=== PATIENT | female | born 1980 | race Caucasian/White ===

== ENCOUNTER 2016-05-25 20:09 | Observation (INO) | payer OTHER ==
[2016-05-25] MEDS ORDERED: SODIUM CHLORIDE 0.9% 1,000 ML IV STA (20:23)
[2016-05-25] MEDS ORDERED: HYDROmorphone 2 MG/ML 1 ML SYRINGE IVP STA (20:24)
[2016-05-25] MEDS ORDERED: KETOROLAC 30 MG/ML 1 ML VIAL IVP STA (20:28)
--- NOTE | 2016-05-25 20:38 | ED ---
General Adult HPI - General Source: patient, RN notes reviewed, old records reviewed Mode of arrival: ambulatory Limitations: no limitations <Toribio Turner - Last Filed: 05/25/16 20:37> <Bianka Lundberg - Last Filed: 05/25/16 22:35> - General Chief complaint: Chest Pain Stated complaint: chest pain Time Seen by Provider: 05/25/16 20:19 - History of Present Illness Initial comments: This is a 35-year-old female here for evaluation. This patient presents reversion chest pain. Patient does sore from chest pain and chronic pain. Is feeling she can take decreased deep inspirations. Radiates to back of her shoulders. She does suffer from fibromyalgia, her current home medication is not helping (Toribio Turner) - Related Data Home Medications Medication Instructions Recorded Confirmed Naproxen [Naprosyn] 500 mg PO TID PRN 12/08/14 05/25/16 Albuterol Inhaler [Ventolin Hfa 1 - 2 puff INHALATION RT-Q6H PRN 05/25/16 Inhaler] Allergies Allergy/AdvReac Type Severity Reaction Status Date / Time No Known Allergies Allergy Verified 05/25/16 20:38 Review of Systems ROS Other: All systems not noted in ROS Statement are negative. <Toribio Turner - Last Filed: 05/25/16 20:37> ROS Other: All systems not noted in ROS Statement are negative. <Bianka Lundberg - Last Filed: 05/25/16 22:35> ROS Statement: Those systems with pertinent positive or pertinent negative responses have been documented in the HPI. Past Medical History Past Medical History: Fibromyalgia Additional Past Medical History / Comment(s): chronic pain, herniated discs in lower back and neck History of Any Multi-Drug Resistant Organisms: None Reported Past Surgical History: Section, Cholecystectomy Past Psychological History: Anxiety, Depression, PTSD Smoking Status: Current every day smoker Past Alcohol Use History: None Reported Past Drug Use History: Marijuana <Toribio Turner - Last Filed: 05/25/16 20:37> General Exam Limitations: no limitations General appearance: alert, in no apparent distress, anxious Head exam: Present: atraumatic, normocephalic, normal inspection Eye exam: Present: normal appearance, PERRL, EOMI. Absent: scleral icterus, conjunctival injection, periorbital swelling ENT exam: Present: normal exam, mucous membranes moist Neck exam: Present: normal inspection. Absent: tenderness, meningismus, lymphadenopathy Respiratory exam: Present: normal lung sounds bilaterally. Absent: respiratory distress, wheezes, rales, rhonchi, stridor Cardiovascular Exam: Present: regular rate, normal rhythm, normal heart sounds. Absent: systolic murmur, diastolic murmur, rubs, gallop, clicks GI/Abdominal exam: Present: soft, normal bowel sounds. Absent: distended, tenderness, guarding, rebound, rigid Extremities exam: Present: normal inspection, full ROM, normal capillary refill. Absent: tenderness, pedal edema, joint swelling, calf tenderness Back exam: Present: normal inspection Neurological exam: Present: alert, oriented X3, CN II-XII intact Psychiatric exam: Present: normal affect, normal mood Skin exam: Present: warm, dry, intact, normal color. Absent: rash <Toribio Turner - Last Filed: 05/25/16 20:37> Course <Toribio Turner - Last Filed: 05/25/16 20:37> <Bianka Lundberg - Last Filed: 05/25/16 22:35> Vital Signs 05/25/16 05/25/16 20:12 21:28 Temperature 98.6 F 97.7 F Pulse Rate 80 64 Respiratory 18 16 Rate Blood Pressure 133/85 117/69 O2 Sat by Pulse 100 99 Oximetry Patient was reassessed at 2230, she still having a chest pain as a 6/10 it's in the midsternal and she would prefer to stay in for serial cardiac markers were likely admit her under Dr. Marquis service cardiology be consulted she be heparinized (Bianka Lundberg) - Reevaluation(s) Reevaluation #1: 05/25/16 20:38 At this time patient's pain is improved (Toribio Turner) Medical Decision Making - Lab Data Result diagrams: 05/25/16 20:30 05/25/16 20:30 <Bianka Lundberg - Last Filed: 05/25/16 22:35> - Lab Data Lab Results 05/25/16 05/25/16 05/25/16 Range/Units 20:30 20:30 20:30 WBC 8.7 (3.8-10.6) k/uL RBC 4.78 (3.80-5.40) m/uL Hgb 13.3 (11.4-16.0) gm/dL Hct 39.6 (34.0-46.0) % MCV 82.9 (80.0-100.0) fL MCH 27.9 (25.0-35.0) pg MCHC 33.7 (31.0-37.0) g/dL RDW 13.0 (11.5-15.5) % Plt Count 218 (150-450) k/uL Neutrophils % 69 % Lymphocytes % 22 % Monocytes % 5 % Eosinophils % 2 % Basophils % 1 % Neutrophils # 6.0 (1.3-7.7) k/uL Lymphocytes # 1.9 (1.0-4.8) k/uL Monocytes # 0.4 (0-1.0) k/uL Eosinophils # 0.2 (0-0.7) k/uL Basophils # 0.0 (0-0.2) k/uL PT (9.0-12.0) sec INR (<1.1) APTT (22.0-30.0) sec D-Dimer (<0.60) mg/L FEU Sodium 142 (137-145) mmol/L Potassium 3.9 (3.5-5.1) mmol/L Chloride 106 (98-107) mmol/L Carbon Dioxide 24 (22-30) mmol/L Anion Gap 12 mmol/L BUN 10 (7-17) mg/dL Creatinine 0.70 (0.52-1.04) mg/dL Est GFR (MDRD) Af Amer >60 (>60 ml/min/1.73 sqM) Est GFR (MDRD) Non-Af >60 (>60 ml/min/1.73 sqM) Glucose 99 (74-99) mg/dL Calcium 9.3 (8.4-10.2) mg/dL Magnesium 1.7 (1.6-2.3) mg/dL Total Bilirubin 0.3 (0.2-1.3) mg/dL AST 16 (14-36) U/L ALT 38 (9-52) U/L Alkaline Phosphatase 56 (38-126) U/L Total Creatine Kinase 64 (30-135) U/L CK-MB (CK-2) 0.4 (0.0-2.4) ng/mL CK-MB (CK-2) Rel Index 0.6 Troponin I <0.012 (0.000-0.034) ng/mL NT-Pro-B Natriuret Pep pg/mL Total Protein 6.9 (6.3-8.2) g/dL Albumin 4.1 (3.5-5.0) g/dL Lipase 101 (23-300) U/L 05/25/16 05/25/16 Range/Units 20:30 20:30 WBC (3.8-10.6) k/uL RBC (3.80-5.40) m/uL Hgb (11.4-16.0) gm/dL Hct (34.0-46.0) % MCV (80.0-100.0) fL MCH (25.0-35.0) pg MCHC (31.0-37.0) g/dL RDW (11.5-15.5) % Plt Count (150-450) k/uL Neutrophils % % Lymphocytes % % Monocytes % % Eosinophils % % Basophils % % Neutrophils # (1.3-7.7) k/uL Lymphocytes # (1.0-4.8) k/uL Monocytes # (0-1.0) k/uL Eosinophils # (0-0.7) k/uL Basophils # (0-0.2) k/uL PT 10.1 (9.0-12.0) sec INR 1.0 (<1.1) APTT 25.0 (22.0-30.0) sec D-Dimer 0.31 (<0.60) mg/L FEU Sodium (137-145) mmol/L Potassium (3.5-5.1) mmol/L Chloride (98-107) mmol/L Carbon Dioxide (22-30) mmol/L Anion Gap mmol/L BUN (7-17) mg/dL Creatinine (0.52-1.04) mg/dL Est GFR (MDRD) Af Amer (>60 ml/min/1.73 sqM) Est GFR (MDRD) Non-Af (>60 ml/min/1.73 sqM) Glucose (74-99) mg/dL Calcium (8.4-10.2) mg/dL Magnesium (1.6-2.3) mg/dL Total Bilirubin (0.2-1.3) mg/dL AST (14-36) U/L ALT (9-52) U/L Alkaline Phosphatase (38-126) U/L Total Creatine Kinase (30-135) U/L CK-MB (CK-2) (0.0-2.4) ng/mL CK-MB (CK-2) Rel Index Troponin I (0.000-0.034) ng/mL NT-Pro-B Natriuret Pep 64 pg/mL Total Protein (6.3-8.2) g/dL Albumin (3.5-5.0) g/dL Lipase (23-300) U/L Critical Care Time <Toribio Turner - Last Filed: 05/25/16 20:37> Total Critical Care Time: 35 <Bianka Lundberg - Last Filed: 05/25/16 22:35> Critical Care Time: Though her blood work looks fine chest x-ray, CBC, comprehensive metabolic panel , d-dimer, troponin considering the chest pain continued to persist at 6/10 at this point she'll be heparinized and a cardiology be consulted there are some risk factors like she has a family history of heart disease. (Bianka Lundberg) Disposition <Toribio Turner - Last Filed: 05/25/16 20:37> <Bianka Lundberg - Last Filed: 05/25/16 22:35> Clinical Impression: Chest pain Disposition: ADMITTED IP TO THIS [facility] Condition: Fair
[2016-05-25 20:45] LABS: Basophils % (A) 1 %; CH 29.1; CHCM 35.3; Eosinophils # (A) 0.2 k/uL (0-0.7); Eosinophils % (A) 2 %; HCT 39.6 % (34.0-46.0); HDW 2.88; HGB 13.3 gm/dL (11.4-16.0); Luc # (Auto) 0.11; Luc % (Auto) 1; Lymphocytes # (A) 1.9 k/uL (1.0-4.8); Lymphocytes % (A) 22 %; MCH 27.9 pg (25.0-35.0); MCHC 33.7 g/dL (31.0-37.0); MCV 82.9 fL (80.0-100.0); Mean Platelet Volume 8.2; Monocytes # (A) 0.4 k/uL (0-1.0); Monocytes % (A) 5 %; Neutrophils % (A) 69 %; RBC 4.78 m/uL (3.80-5.40); WBC 8.7 k/uL (3.8-10.6); WBC (Perox) 9.08
[2016-05-25 20:58] LABS: ALT 38 U/L (9-52); AST 16 U/L (14-36); Alkaline Phosphatase 56 U/L (38-126); Anion Gap 12 mmol/L; Blood Urea Nitrogen 10 mg/dL (7-17); Calcium 9.3 mg/dL (8.4-10.2); Carbon Dioxide 24 mmol/L (22-30); Chloride 106 mmol/L (98-107); Glucose 99 mg/dL (74-99); Magnesium 1.7 mg/dL (1.6-2.3); Non-African American GFR(MDRD) >60 (>60 ml/min/1.73 sqM); Potassium 3.9 mmol/L (3.5-5.1); Sodium 142 mmol/L (137-145); Total Bilirubin 0.3 mg/dL (0.2-1.3); Total Protein 6.9 g/dL (6.3-8.2)
[2016-05-25 21:04] LABS: Prothrombin Time 10.1 sec (9.0-12.0)
[2016-05-25 21:06] LABS: Creatine Kinase 64 U/L (30-135)
[2016-05-25 21:21] LABS: Creatine Kinase MB 0.4 ng/mL (0.0-2.4); Troponin I <0.012 ng/mL (0.000-0.034)
--- NOTE | 2016-05-25 21:21 | XR ---
EXAMINATION TYPE: XR chest 2V DATE OF EXAM: 05/25/2016 9:13 PM COMPARISON: NONE HISTORY: Pain TECHNIQUE: Frontal and lateral views of the chest are obtained. FINDINGS: There is no focal air space opacity, pleural effusion, or pneumothorax seen. The cardiac silhouette size is within normal limits. The osseous structures are intact. IMPRESSION: No acute cardiopulmonary process.
[2016-05-25] MEDS ORDERED: NITROGLYCERIN SL TABS 0.4 MG TAB SUBLINGUAL PRN (22:37)
[2016-05-25] MEDS ORDERED: HEPARIN SODIUM,PORCINE 5,000 UNIT/ML 1 ML VIAL IV ONE (22:37)
[2016-05-25] MEDS ORDERED: ACETAMINOPHEN TAB 325 MG TAB PO PRN (22:37)
[2016-05-25] MEDS ORDERED: ALBUTEROL NEBULIZED 2.5 MG/3 ML INHALATION PRN (22:41)
[2016-05-25] MEDS ORDERED: HEPARIN SODIUM,PORCINE/D5W PMX 25,000 UNIT in DEXTROSE/WATER 1 500ML.BAG IV SCH (22:45)
[2016-05-25] MEDS ORDERED: HEPARIN SODIUM,PORCINE 5,000 UNIT/ML 1 ML VIAL IV PRN (22:54)
[2016-05-25] MEDS: MORPHINE SULFATE 2 MG/ML SYRINGE IVP PRN (23:27)
[2016-05-25 23:58] VITALS: BMI 39.1
[2016-05-26 02:48] LABS: Creatine Kinase 53 U/L (30-135)
[2016-05-26 03:01] LABS: Creatine Kinase MB 0.4 ng/mL (0.0-2.4); Troponin I <0.012 ng/mL (0.000-0.034)
[2016-05-26 06:02] LABS: Cholesterol 107 mg/dL (<200); HDL Cholesterol 32 mg/dL (40-60); Triglycerides 145 mg/dL (<150)
[2016-05-26] MEDS: MORPHINE SULFATE 2 MG/ML SYRINGE IVP PRN (06:10)
[2016-05-26 07:47] VITALS: RESP 18
[2016-05-26] MEDS ORDERED: METOPROLOL TARTRATE 25 MG TAB PO SCH (09:00)
[2016-05-26] MEDS ORDERED: ASPIRIN 325 MG TAB PO SCH (09:00)
[2016-05-26] MEDS ORDERED: DOBUTamine DRIP for NUC MED 500 MG in DEXTROSE/WATER 1 250ML.BAG IV ONE (10:54)
--- NOTE | 2016-05-26 10:54 | P.CRDCN ---
History of Present Illness Consult date: 05/26/16 History of present illness: This is a pleasant 35-year-old female patient with a past medical history significant for arthritis and low back pain and also significant history of smoking presented to the emergency room complaining of chest discomfort. She describes 3 days history of chest discomfort, as a pressure around the chest , without any radiation to the neck but with some rotation to the back. She is not aware of any prior history of coronary artery disease or coronary artery stenting. The EKG showed sinus rhythm without any significant ST or T wave abnormalities. The cardiac enzymes came in to be unremarkable. I am scheduling the patient to undergo a stress test and follow up with her. Past Medical History Past Medical History: Asthma, Fibromyalgia Additional Past Medical History / Comment(s): chronic pain, herniated discs in lower back and neck, IBS History of Any Multi-Drug Resistant Organisms: None Reported Past Surgical History: Section, Cholecystectomy Additional Past Surgical History / Comment(s): laminectomy 04/2015 - [facility] Past Anesthesia/Blood Transfusion Reactions: No Reported Reaction Past Psychological History: Anxiety, Depression, PTSD Smoking Status: Current every day smoker Past Alcohol Use History: None Reported Past Drug Use History: Marijuana - Past Family History Mother Additional Family Medical History / Comment(s): knows has cardiac probs unsure of dx Medications and Allergies Home Medications Medication Instructions Recorded Confirmed Type Naproxen [Naprosyn] 500 mg PO TID PRN 12/08/14 05/25/16 History Albuterol Inhaler [Ventolin Hfa 1 - 2 puff INHALATION RT-Q6H PRN 05/25/16 History Inhaler] Allergies Allergy/AdvReac Type Severity Reaction Status Date / Time No Known Allergies Allergy Verified 05/25/16 20:38 Physical Exam Vitals: Vital Signs Temp Pulse Pulse Resp BP BP Pulse Ox 05/26/16 07:46 97.5 F L 64 18 97/59 97 05/26/16 04:00 97.6 F 66 16 99/57 100 05/26/16 00:00 74 16 05/25/16 23:48 98.0 F 68 16 121/77 100 05/25/16 23:00 97.6 F 76 18 112/80 98 Intake and Output 05/25/16 05/26/16 05/26/16 22:59 06:59 14:59 Intake Total 138.569 Balance 138.569 Intake: Intake, IV Titration 138.569 Amount Heparin Sodium,Porcine/ 138.569 D5w Pmx 25,000 unit In Dextrose/Water 1 500ml. bag @ 8.9 UNITS/KG/HR 20. 18 mls/hr IV .Q24H [facility] Rx #:[id number] Other: Voiding Method Toilet # Voids 1 Weight 113.3 kg - Constitutional General appearance: no acute distress - Respiratory Respiratory: bilateral: CTA - Cardiovascular Rhythm: regular Heart sounds: normal: S1, S2 Results 05/25/16 20:30 05/25/16 20:30 Cardiac Enzymes 05/26/16 Range/Units 02:10 CK-MB (CK-2) 0.4 (0.0-2.4) ng/mL Troponin I <0.012 (0.000-0.034) ng/mL Coagulation 05/26/16 Range/Units 05:34 APTT 29.2 (22.0-30.0) sec Lipids 05/26/16 Range/Units 05:30 Triglycerides 145 (<150) mg/dL Cholesterol 107 (<200) mg/dL HDL Cholesterol 32 L (40-60) mg/dL Current Medications Generic Name Dose Route Start Last Admin Trade Name Freq PRN Reason Stop Dose Admin Acetaminophen 650 mg 05/25/16 22:37 Tylenol Tab PO Q4HR PRN Pain Albuterol Sulfate 2.5 mg 05/25/16 22:41 Ventolin Nebulized INHALATION RT-Q6H PRN Shortness Of Breath Aspirin 325 mg 05/26/16 09:00 Aspirin PO DAILY [facility] Atorvastatin Calcium 40 mg 05/26/16 21:00 Lipitor PO HS [facility] Heparin Sodium (Porcine) 0 unit 05/25/16 22:54 05/26/16 06:13 Heparin IV 4,000 unit PER PROTOCOL PRN Administration Low PTT Protocol Heparin Sodium/Dextrose 25,000 500 mls @ 20.18 mls/hr 05/25/16 22:45 06:14 unit/ IV Solution IV 11.86 units/kg/hr .Q24H [facility] 26.9 mls/hr Protocol Titration 8.9 UNITS/KG/HR Metoprolol Tartrate 25 mg 05/26/16 09:00 Lopressor PO BID [facility] Morphine Sulfate 2 mg 05/25/16 22:37 05/26/16 06:10 Morphine Sulfate (Inj) IVP 2 mg Q5M PRN Administration Chest Pain Nitroglycerin 0.4 mg 05/25/16 22:37 Nitrostat SUBLINGUAL Q5M PRN Chest Pain Intake and Output 05/25/16 05/26/16 05/26/16 22:59 06:59 14:59 Intake Total 138.569 Balance 138.569 Intake: Intake, IV Titration 138.569 Amount Heparin Sodium,Porcine/ 138.569 D5w Pmx 25,000 unit In Dextrose/Water 1 500ml. bag @ 8.9 UNITS/KG/HR 20. 18 mls/hr IV .Q24H [facility] Rx #:[id number] Other: Voiding Method Toilet # Voids 1 Weight 113.3 kg Assessment and Plan Plan: Assessment #1 atypical chest discomfort #2 significant history of smoking Plan #1 proceeding with stress test
[2016-05-26 11:12] LABS: Creatine Kinase 48 U/L (30-135)
[2016-05-26 11:25] VITALS: BP 116/64; PULSE 63; TEMP 98.2
[2016-05-26 11:26] LABS: Creatine Kinase MB 0.3 ng/mL (0.0-2.4); Troponin I <0.012 ng/mL (0.000-0.034)
[2016-05-26] MEDS ORDERED: METOPROLOL TARTRATE 5 MG/5 ML VIAL IVP ONE (12:40)
--- NOTE | 2016-05-26 13:21 | ECHOS ---
DATE OF SERVICE: 05/26/2016 AGE: 35Y SEX: F HT: 67" WT: 249 lbs. Protocol Osvaldo: Others: Dobutamine Stress Echo Stage: Dur. of Exercise: *Heart Rate Blood Pressure *Rest: 78 Rest: 131/78 * *Max. Achieved: 158 Maximum BP: 198/39 85% PMHR: 157 100% PMHR: 185 *METS: INDICATIONS: Chest pain. MEDICATIONS: Baseline EKG revealed a normal sinus rhythm without significant ST-T changes. With dobutamine administration, the heart rate went up to 158 beats per minute. The patient developed significant nausea and had small emesis. She remained in sinus rhythm with sinus tachycardia. No arrhythmia or angina was noted. By EKG criteria, this is an unremarkable dobutamine stress test with somewhat of an unpleasant reaction to dobutamine in terms of nausea and emesis. EKG; however, was unremarkable. Baseline echo images reveal normal wall motion and wall thickening of all segments. With dobutamine administration as per protocol, there was progressive increase in contractility of all segments suggesting that there is no evidence of any stress-induced ischemia on this study. FINAL IMPRESSION: 1. By EKG criteria, this is an unremarkable dobutamine stress test. The patient had unpleasant reaction with dobutamine with nausea and emesis. 2. At a maximal heart rate of nearly 85% of predicted maximal, there was no evidence of ischemia on this dobutamine echocardiogram.
[2016-05-26] MEDS ORDERED: LORazepam 1 MG TAB PO STA (15:30)
[2016-05-26] MEDS ORDERED: ATORVASTATIN 40 MG TAB PO SCH (21:00)
--- NOTE | 2016-05-26 22:35 | HP ---
H&P and DISCHARGE SUMMARY DATE OF ADMISSION: Patient is a 35-year-old obese female who came in with complaints of back pain and band-like pain around the chest area, because of which patient was admitted to rule out acute coronary syndrome. Patient was evaluated by Cardiology. Patient did not have any typical symptomatic of cardiac pain. Patient underwent stress test which was negative. Patient has had low back issues and neck issues in the past. Patient although denied any tingling numbness in the hands. Patient denied any fever or chills. Patient has high anxiety, is severely depressed; actually was crying during my interview, although patient denied any suicidal ideations. Patient denied any fever or chills. Patient was quite anxious yesterday and unable to deal with the anxiety. Patient also has fibromyalgia. Patient has good support from her boyfriend. EKG did not show any acute ST-T changes. Cardiac enzymes are unremarkable. Initially I wanted to discharge her on Cymbalta, which is helpful for fibromyalgia as well, although patient in the past had side effects from Cymbalta, because of which I changed it to paroxetine and patient will also be given a prescription for Ativan. Patient follows up with a psychiatrist as an outpatient. I recommended followup with the psychiatrist, followup with Dr. Domingo. Patient follows with Neurology for her back issues. Patient will need physical therapy as an outpatient. Patient was subsequently discharged after the stress test. This dictation is both H&P and discharge summary. PAST MEDICAL HISTORY: 1. Asthma. 2. Fibromyalgia. 3. section. 4. Cholecystectomy. 5. Severe depression. 6. Anxiety. 7. PTSD. SOCIAL HISTORY: Continues to smoke. Occasionally uses marijuana. Denied any alcohol abuse. FAMILY HISTORY: Denied any significant family history of premature coronary artery disease. Home medications include naproxen and albuterol. ALLERGIES: NO KNOWN DRUG ALLERGIES. PHYSICAL EXAMINATION: VITAL SIGNS: Temperature 97.5, pulse of 64, respiratory rate of 18. Blood pressure is 97/59. Saturating at 97% on room air. GENERAL: The patient is alert and oriented x3, not in any acute distress. Well developed, well nourished. HEENT: Pupils are round and equally reacting to light. EOMI. No scleral icterus. No conjunctival pallor. Normocephalic, atraumatic. No pharyngeal erythema. No thyromegaly. CARDIOVASCULAR: S1 and S2 present. No murmurs, rubs, or gallops. PULMONARY: Chest is clear to auscultation, no wheezing or crackles. ABDOMEN: Soft, nontender, nondistended, normoactive bowel sounds. No palpable organomegaly. MUSCULOSKELETAL: No joint swelling or deformity. EXTREMITIES: No cyanosis, clubbing, or pedal edema. NEUROLOGICAL: Gross neurological examination did not reveal any focal deficits. SKIN: No rashes. PSYCHIATRIC: Examination as mentioned above. REVIEW OF SYSTEMS: CONSTITUTIONAL: No fever, no malaise, no fatigue. HEENT: No recent visual problems or hearing problems. Denied any sore throat. CARDIOVASCULAR: No chest pain, orthopnea, PND, no palpitations, no syncope. PULMONARY: No shortness of breath, no cough, no hemoptysis. GASTROINTESTINAL: No diarrhea, no nausea, no vomiting, no abdominal pain. Normoactive bowel sounds. NEUROLOGICAL: No headaches, no weakness, no numbness. HEMATOLOGICAL: Denies any bleeding or petechiae. GENITOURINARY: Denies any burning micturition, frequency, or urgency. MUSCULOSKELETAL/RHEUMATOLOGICAL: Denies any joint pain, swelling, or any muscle pain. ENDOCRINE: Denies any polyuria or polydipsia. PSYCHIATRIC: As mentioned above. The rest of the 14 point review of systems is negative. LABORATORY DATA: CBC, CMP are essentially within normal limits. Chest x-ray did not show any pneumonic process. D-dimer is negative. Cholesterol is under control. ASSESSMENT AND PLAN: 1. Chest pain which is atypical in nature. Patient underwent a stress test which was negative. Patient's chest pain is secondary to the back, osteoarthritis of the thoracolumbar thoracolumbar as well as cervical spine, for which patient will need outpatient physical therapy. Patient even got back surgery in the past. Patient will be discharged to follow up with Neurology, primary care physician. 2. Severe depression without any suicidal ideations. 3. Anxiety disorder. PLAN: As mentioned in the interval history itself, patient will be discharged today. Patient will be discharged on paroxetine, Ativan as needed. Patient will continue her naproxen for her back pain. Follow up with Dr. Domingo as an outpatient. Follow up with Neurology as an outpatient. Follow up with Psychiatry as mentioned above.
== END 2016-05-26 17:50 | disposition home or self-care (01) ==
LOC: EC 20:09 → 3OBS 22:37
PROVIDERS: ADMIT Hospitalist; ATTEND Hospitalist
DX: R07.89 Other chest pain (principal); M79.7 Fibromyalgia; F17.200 Nicotine dependence, unspecified, uncomplicated; E66.9 Obesity, unspecified; M47.815 Spondylosis without myelopathy or radiculopathy, thoracolumbar region; M19.90 Unspecified osteoarthritis, unspecified site; F41.9 Anxiety disorder, unspecified; F32.9 Major depressive disorder, single episode, unspecified; J45.909 Unspecified asthma, uncomplicated; F43.10 Post-traumatic stress disorder, unspecified; F12.90 Cannabis use, unspecified, uncomplicated; Z68.39 Body mass index [BMI] 39.0-39.9, adult; Z82.49 Family history of ischemic heart disease and other diseases of the circulatory system
CPT/HCPCS: 99291; 96375 ×3; 96376; 96361; 36415; 93017; 93350; 85379; 83880; 80061; 80053; 82550 ×2; 82553 ×2; 83690; 83735; 84484 ×2; 85025; 85610; 85730 ×2; 71020; G0378 ×2; J1250; J1170; J1644 ×3; J1885; J2270 ×2; 93005; 96365; 96366

== ENCOUNTER → 2016-06-16 | Outpatient (CLI) | payer OTHER ==
[2016-06-16 15:46] LABS: Non-African American GFR(MDRD) >60 (>60 ml/min/1.73 sqM)
== END | disposition home or self-care (01) ==
LOC: LABWHC1 14:42
PROVIDERS: ATTEND Neurological Surgery
DX: M47.816 Spondylosis without myelopathy or radiculopathy, lumbar region (principal); M54.16 Radiculopathy, lumbar region
CPT/HCPCS: 36415; 82565

== ENCOUNTER → 2016-06-19 | Outpatient (CLI) | payer OTHER ==
--- NOTE | 2016-06-19 10:45 | MR ---
EXAMINATION TYPE: MR lumbar spine wo/w con DATE OF EXAM: 06/19/2016 10:25 AM COMPARISON: 08/07/2015 HISTORY: low back pain, previous surgery TECHNIQUE: T1 and T2 axial and sagittal images of the lumbar spine are submitted. FINDINGS: There is no abnormal signal seen within the visualized spinal cord or paraspinal soft tissu es. Multilevel postsurgical change. Fluid collection previously noted posterior the L4-5 levels appea rs to has resolved with areas of intermediate signal with some enhancement likely in the basis of pos tsurgical scar. At L1-2 there is no degenerative disc disease, disc herniation, canal stenosis, or foraminal encroach ment. At L2-3 there is no degenerative disc disease, disc herniation, canal stenosis, or foraminal encroach ment. At L3-4 there is mild degenerative disc disease with a broad-based central left paracentral disc hilda iation and moderate effacement of thecal sac. There is foraminal encroachment. Finding is stable. At L4-5 there is postsurgical change. There is discogenic marrow changes and degenerative disc diseas e. Facet arthropathy greater on the right noted. There is signal along the right paracentral and late ral aspect of the spinal canal extending the right lateral recess with some enhancement likely relate d to postsurgical scar or granulation with right paracentral and lateral disc protrusion. Results in a degree of foraminal encroachment and lateral recess stenosis. At L5-S1 there is there is an annular tear and central disc protrusion slightly greater paracentrally to the left. Neural foramina remain patent. IMPRESSION: 1. Stable postsurgical changes. 2. Stable broad-based central left paracentral disc herniation L3-L4 with moderate effacement of thec al sac and foraminal encroachment. 3. Interval reduction in size of a large herniation at the L4-L5 level. Enhancement paracentrally and laterally to the right with areas of signal suggest granulation tissue or postsurgical scar with rig ht paracentral disc protrusion. Foraminal encroachment and degree of lateral recess stenosis noted. 4. Annular tear and central disc protrusion L5-S1 slightly greater paracentrally the left. No foramin al encroachment. 5. Interval resolution of a soft tissue fluid collection within the postsurgical site.
== END | disposition home or self-care (01) ==
LOC: RADMRIMAIN 09:31
PROVIDERS: ATTEND Neurological Surgery
DX: M48.06 Spinal stenosis, lumbar region (principal); M51.17 Intervertebral disc disorders with radiculopathy, lumbosacral region; Z98.890 Other specified postprocedural states
CPT/HCPCS: 72158; A9577

== ENCOUNTER 2016-09-22 20:31 | Emergency (ER) | payer OTHER ==
[2016-09-22 20:47] VITALS: BP 131/82; PULSE 85; RESP 18; TEMP 98.3
[2016-09-22] MEDS ORDERED: ORPHENADRINE 30 MG/ML 2 ML VIAL IM STA (21:00)
[2016-09-22] MEDS ORDERED: methylPREDNISolone SOD SUCCI 125 MG/2 ML VIAL IM STA (21:00)
[2016-09-22] MEDS ORDERED: diphenhydrAMINE 50 MG CAP PO STA (21:00)
[2016-09-22] MEDS ORDERED: ONDANSETRON ODT 4 MG TAB PO STA (21:00)
--- NOTE | 2016-09-22 21:06 | ED ---
General Adult HPI - General Chief complaint: Neck Pain/Injury Stated complaint: neck pain Time Seen by Provider: 09/22/16 20:55 Source: patient, RN notes reviewed Mode of arrival: ambulatory Limitations: no limitations - History of Present Illness Initial comments: 35-year-old female presents to the emergency department with a chief complaint of neck pain and headache. Patient has chronic neck pain and chronic headaches. Patient states this is much like her normal neck pain and headaches. Patient states it starts in her neck and wraps Around her head. Patient states she has seen her neurologist for this in the past they have done injections. Patient states she currently is in a different sleeping situation and she believes this is due to the bed but she is currently sleeping and. Patient states he was no injury there is no trauma. Patient states this is much like her normal pain. Patient denies any radiate down the arms any weakness. Patient denies any recent fever, chills, shortness of breath, chest pain, back pain, abdominal pain, nausea vomiting, numbness or tingling, dysuria or hematuria, constipation or diarrhea, visual changes, or any other current symptoms. - Related Data Home Medications Medication Instructions Recorded Confirmed Naproxen [Naprosyn] 500 mg PO TID PRN 12/08/14 05/25/16 Albuterol Inhaler [Ventolin Hfa 1 - 2 puff INHALATION RT-Q6H PRN 05/25/16 Inhaler] Previous Rx's Medication Instructions Recorded FLUoxetine HCL 10 mg PO DAILY #30 tablet 05/26/16 LORazepam [Ativan] 1 mg PO TID #30 tab 05/26/16 Orphenadrine [Norflex] 100 mg PO Q12H #10 tablet.er 09/22/16 predniSONE 50 mg PO DAILY #5 tab 09/22/16 Allergies Allergy/AdvReac Type Severity Reaction Status Date / Time No Known Allergies Allergy Verified 09/22/16 20:47 Review of Systems ROS Statement: Those systems with pertinent positive or pertinent negative responses have been documented in the HPI. ROS Other: All systems not noted in ROS Statement are negative. Past Medical History Past Medical History: Asthma, Fibromyalgia Additional Past Medical History / Comment(s): chronic pain, herniated discs in lower back and neck, IBS History of Any Multi-Drug Resistant Organisms: None Reported Past Surgical History: Section, Cholecystectomy Additional Past Surgical History / Comment(s): laminectomy 04/2015 - [facility] Past Anesthesia/Blood Transfusion Reactions: No Reported Reaction Past Psychological History: Anxiety, Depression, PTSD Smoking Status: Current every day smoker Past Alcohol Use History: None Reported Past Drug Use History: Marijuana - Past Family History Mother Additional Family Medical History / Comment(s): knows has cardiac probs unsure of dx General Exam Limitations: no limitations General appearance: alert, in no apparent distress Head exam: Present: atraumatic, normocephalic, normal inspection Eye exam: Present: normal appearance, PERRL, EOMI. Absent: scleral icterus, conjunctival injection, periorbital swelling ENT exam: Present: normal exam, mucous membranes moist Neck exam: Present: normal inspection. Absent: tenderness, meningismus, lymphadenopathy Respiratory exam: Present: normal lung sounds bilaterally. Absent: respiratory distress, wheezes, rales, rhonchi, stridor Cardiovascular Exam: Present: regular rate, normal rhythm, normal heart sounds. Absent: systolic murmur, diastolic murmur, rubs, gallop, clicks Neurological exam: Present: alert, oriented X3, CN II-XII intact. Absent: motor sensory deficit Psychiatric exam: Present: normal affect, normal mood Skin exam: Present: warm, dry, intact, normal color. Absent: rash Course Vital Signs 09/22/16 20:44 Temperature 98.3 F Pulse Rate 85 Respiratory 18 Rate Blood Pressure 131/82 O2 Sat by Pulse 98 Oximetry Medical Decision Making - Medical Decision Making 35-year-old female presents with lip of her chronic back pain along with headache. This time we will start her on steroids for home due to the fact that it does appear to be some nerve type issue. We discussed multiple muscle relaxers for her neck pain. We discussed follow-up with neurologist and return parameters. The patient is alert this time. She states that she understood and is in agreement with plan. She will be discharged home. Disposition Clinical Impression: Chronic neck pain, Headache Disposition: HOME SELF-CARE Condition: Stable Instructions: Acute Headache (ED) Additional Instructions: Please use medication as discussed. Please follow up with family doctor if symptoms have not improved over the next two days. Please return to the emergency room if your symptoms increase or worsen or for any other concerns. Prescriptions: Orphenadrine [Norflex] 100 mg PO Q12H #10 tablet.er predniSONE 50 mg PO DAILY #5 tab Referrals: Anna Domingo MD [Primary Care Provider] - 1-2 days Time of Disposition: 21:13
== END 2016-09-22 21:17 | disposition home or self-care (01) ==
LOC: EC 20:31
DX: G89.29 Other chronic pain (principal); M54.2 Cervicalgia; R51 Headache; F17.200 Nicotine dependence, unspecified, uncomplicated
CPT/HCPCS: 99283; 96372 ×2; J2360; J2930

== ENCOUNTER 2017-03-30 06:48 | Day surgery (SDC) | payer OTHER ==
[2017-03-26 09:20] VITALS: BMI 39.1
--- NOTE | 2017-03-29 16:51 | P.HPOB ---
History of Present Illness H&P Date: 03/29/17 Chief Complaint: ZEUS II 36 year old presents for LEEP due to ZEUS II Review of Systems All systems: negative Constitutional: Denies chills, Denies fever Eyes: denies blurred vision, denies pain Ears, nose, mouth and throat: Denies headache, Denies sore throat Cardiovascular: Denies chest pain, Denies shortness of breath Respiratory: Denies cough Gastrointestinal: Denies abdominal pain, Denies diarrhea, Denies nausea, Denies vomiting Genitourinary: Denies dysuria, Denies hematuria Musculoskeletal: Denies myalgias Integumentary: Denies pruritus, Denies rash Neurological: Denies numbness, Denies weakness Psychiatric: Denies anxiety, Denies depression Endocrine: Denies fatigue, Denies weight change Past Medical History Past Medical History: Asthma, Fibromyalgia, GERD/Reflux Additional Past Medical History / Comment(s): pt states "abn pap smear-has high grade lesions result",chronic pain, herniated discs in lower back and neck, IBS History of Any Multi-Drug Resistant Organisms: None Reported Past Surgical History: Section, Cholecystectomy Additional Past Surgical History / Comment(s): laminectomy 04/2015 - [facility] Past Anesthesia/Blood Transfusion Reactions: No Reported Reaction, Family History of Problems w/ Anesthesia Additional Past Anesthesia/Blood Transfusion Reaction / Comment(s): mother had hard time waking up with anesthesia Past Psychological History: Anxiety, Bipolar, PTSD Smoking Status: Current every day smoker Past Alcohol Use History: None Reported Past Drug Use History: Marijuana - Past Family History Mother Family Medical History: Cancer Additional Family Medical History / Comment(s): knows has cardiac probs unsure of dx,stomach CA Medications and Allergies Home Medications Medication Instructions Recorded Confirmed Type Albuterol Inhaler [Ventolin Hfa 1 - 2 puff INHALATION RT-Q6H PRN 05/25/16 History Inhaler] D-Methorphan/PE/Acetaminophen 1 each PO DAILY PRN 03/26/17 03/26/17 History [Sudafed PE Pressure+Pain+Cough] Allergies Allergy/AdvReac Type Severity Reaction Status Date / Time No Known Allergies Allergy Verified 03/26/17 09:09 Exam Osteopathic Statement: *. No significant issues noted on an osteopathic structural exam other than those noted in the History and Physical/Consult. HEart: RRR Lungs: CTAB Abdomen: soft, nontender Extremeties: neg erik's Assessment and Plan (1) ZEUS II (cervical intraepithelial neoplasia II) Status: Acute Code(s): N87.1 - MODERATE CERVICAL DYSPLASIA SNOMED Code(s): 759593707 Plan: 1. LEEP
[~2017-03-30 06:48] MED LIST: LACTATED RINGERS 1,000 ML IV ONE; MORPHINE SULFATE 10 MG/ML SYRINGE IV PRN; ONDANSETRON 4 MG/2 ML VIAL IVP PRN; Pre Op ABX Message 1 EACH MISC MISCELLANE ONE
[2017-03-30 06:58] VITALS: TEMP 97
[2017-03-30] MEDS ORDERED: LIDOCAINE 1% 20 ML VIAL (10MG/ML) FOR IV START INTRADERMA ONE (06:58)
[2017-03-30] MEDS ORDERED: MIDAZOLAM 2 MG/2 ML VIAL IV ONE (07:13)
[2017-03-30] MEDS ORDERED: fentaNYL (PF) 50 MCG/ML 2 ML AMP ONE (07:52)
[2017-03-30] MEDS ORDERED: SUCCINYLCHOLINE CHLORIDE VIAL 200 MG/10 ML VIAL IV ONE (07:52)
[2017-03-30] MEDS ORDERED: KETOROLAC 30 MG/ML 1 ML VIAL ONE (07:52)
[2017-03-30] MEDS ORDERED: MIDAZOLAM 2 MG/2 ML VIAL ONE (07:52)
[2017-03-30] MEDS ORDERED: LIDOCAINE 1% INJ 10MG/ML (20 ML MDV) ONE (07:52)
[2017-03-30] MEDS ORDERED: PROPOFOL 10 MG/ML 20 ML VIAL IV ONE (07:52)
[2017-03-30] MEDS ORDERED: FERRIC SUBSULFATE (MONSELS) JAR TOPICAL ONE (08:23)
--- NOTE | 2017-03-30 08:28 | P.OP ---
Date of Procedure: 03/30/17 Preoperative Diagnosis: 1. ZEUS II Postoperative Diagnosis: 1. ZEUS II Procedure(s) Performed: LEEP Anesthesia: RAYNA Surgeon: Kendy Ackerman Estimated Blood Loss (ml): 20 IV fluids (ml): 600 Urine output (ml): 15 Pathology: other (cervical cone (in pieces)) Condition: stable Disposition: PACU Description of Procedure: Patient was taken the operating room where general anesthesia was obtained without difficulty. she was prepped and draped in normal sterile fashion dorsal lithotomy position, legs placed in the candycane stirrups. Bladder was drained of all urine. A coated bivalve speculum was placed in the vagina. The 2 cm loop was used to obtain a specimen. First the posterior lip was obtained and then the anterior lip with obtained. The ball tip cautery was used to cauterize the crater left in the cervix. Hemostasis was assured. Monsel's was also placed. Patient tolerated procedure well, sponge and instrument counts correct 2. She was taken to recovery room in stable condition.
[2017-03-30] MEDS: HYDROmorphone 1 MG/ML 1 ML SYRINGE IVP ONE ×2 (08:56→09:11)
[2017-03-30 10:05] VITALS: BP 100/51; PULSE 48; RESP 18
== END 2017-03-30 10:38 | disposition home or self-care (01) ==
LOC: OR 06:48
PROVIDERS: ATTEND Obstetrics & Gynecology
DX: D06.1 Carcinoma in situ of exocervix (principal); J45.909 Unspecified asthma, uncomplicated; M79.7 Fibromyalgia; K21.9 Gastro-esophageal reflux disease without esophagitis; F17.200 Nicotine dependence, unspecified, uncomplicated
CPT/HCPCS: 57522; 81025; 88342; 88307; 88341; J2250; J0330; J2405; J2001; J3010; J1885; J1170; J2704

== ENCOUNTER → 2017-10-07 | Outpatient (CLI) | payer OTHER ==
--- NOTE | 2017-10-09 19:04 | MR ---
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 Technique: Multiplanar, multisequence images of the lumbar spine were obtained before and after admin istration of 11.5 mL intravenous Gadavist gadolinium contrast. FINDINGS: Vertebral body heights are preserved alignment is maintained. Redemonstrated fatty Modic type II endplate change at L4-L5. No suspicious bone marrow replacement. S light decreased marrow compatible with prominent red marrow which may relate to patient's relatively young age. Anemia, obesity, smoking are additional considerations. Facet arthropathy lower lumbar spine especially at L4-L5. Degenerative disc disease especially from L 3 through S1 levels when desiccated, mildly narrowed, diffusely bulging discs. Conus medullaris is normal. There are postsurgical changes with right laminotomy at L4-L5. No abnormal fluid collection identifie d. At T12-L1, the spinal canal or foraminal stenosis. At L1-L2, very minimal bulging disc without canal or foraminal stenosis. At L2-L3, no canal or foraminal stenosis. At L3-L4, there is a central, left paracentral disc protrusion impressing onto the ventral thecal sac and closely approaching the traversing left L4 nerve root. No significant spinal canal or foraminal stenosis and no significant change from prior exam. At L4-L5, redemonstrated central disc protrusion but now with a very large left paracentral and later al recess disc extrusion. Large inferiorly migrated edematous and enhancing fragment measuring 1.6 cm wide by 2.8 cm craniocaudal by 1.3 cm AP is located along the left paracentral portion along the pos terior margin of the L5 vertebral body. This effaces the left lateral recess impinging the traversing left L5 and S1 nerve roots. Associated large annular fissure. Mild bilateral neural foraminal stenos is is relatively similar. No significant spinal canal stenosis. At L5-S1, redemonstrated diffuse disc bulge with superimposed left paracentral protrusion and facet a rthropathy. Moderate left neural foraminal stenosis slightly increased. No spinal canal stenosis. Some enhancing granulation tissue is noted at the right L4-L5 laminotomy site but does not clearly ex tend into the spinal canal. Couple subcentimeter T2 hyperintense, nonenhancing cysts in the left kidney. No prevertebral or parav ertebral soft tissue abnormality seen. IMPRESSION: 1. Redemonstrated right L4-L5 laminotomy with facet arthropathy (greatest at L4-L5) and degenerative disc disease lower lumbar spine especially from L3 through S1 levels. 2. There is a new very large, edematous and enhancing, extruded disc left paracentral L4-L5. The frag ment migrates inferiorly to lie along the posterior margin of the L5 vertebral body and impinges the traversing left L5 and S1 nerve roots. Associated large annular fissure, left lateral recess stenosis , and similar mild bilateral neural foraminal stenosis. No jamila canal compromise.
== END | disposition home or self-care (01) ==
LOC: RADMRIMAIN 15:03
PROVIDERS: ATTEND Psychiatry & Neurology Neurology
DX: M48.061 Spinal stenosis, lumbar region without neurogenic claudication (principal); M99.73 Connective tissue and disc stenosis of intervertebral foramina of lumbar region; M51.37 Other intervertebral disc degeneration, lumbosacral region; M46.97 Unspecified inflammatory spondylopathy, lumbosacral region
CPT/HCPCS: 72158; A9581

== ENCOUNTER 2018-06-12 12:40 | Emergency (ER) | payer OTHER ==
[2018-06-12 12:58] VITALS: TEMP 98.2
[2018-06-12] MEDS ORDERED: SODIUM CHLORIDE 0.9% 1,000 ML IV STA ×2 (13:50)
[2018-06-12] MEDS ORDERED: METOCLOPRAMIDE 5 MG/ML 2 ML VIAL IVP STA (13:50)
[2018-06-12] MEDS ORDERED: diphenhydrAMINE 50 MG/ML 1 ML VIAL IVP STA (13:50)
--- NOTE | 2018-06-12 14:19 | ED ---
Nausea/Vomiting/Diarrhea HPI - General Chief complaint: Nausea/Vomiting/Diarrhea Stated complaint: vomiting/poss UTI Time Seen by Provider: 06/12/18 13:22 Source: patient, RN notes reviewed, old records reviewed Mode of arrival: ambulatory Limitations: no limitations - History of Present Illness Initial comments: 37-year-old female presented to the emergency department today with complaints of vomiting, dysuria. is 6 weeks . She denies vaginal bleeding or discharge. She denies any abdominal pain. She denies any chest pain or associated shortness of breath. Patient is a female. - Related Data Home Medications Medication Instructions Recorded Confirmed diphenhydrAMINE [Benadryl] 25 mg PO HS PRN 06/12/18 06/12/18 Previous Rx's Medication Instructions Recorded Cephalexin [Keflex] 500 mg PO Q6HR 3 Days #12 cap 06/12/18 Metoclopramide [Reglan] 10 mg PO ACHS #12 tab 06/12/18 Allergies Allergy/AdvReac Type Severity Reaction Status Date / Time No Known Allergies Allergy Verified 06/12/18 13:47 Review of Systems ROS Statement: Those systems with pertinent positive or pertinent negative responses have been documented in the HPI. ROS Other: All systems not noted in ROS Statement are negative. Past Medical History Past Medical History: Asthma, Fibromyalgia Additional Past Medical History / Comment(s): chronic pain, herniated discs in lower back and neck, IBS History of Any Multi-Drug Resistant Organisms: None Reported Past Surgical History: Section, Cholecystectomy Additional Past Surgical History / Comment(s): laminectomy 04/2015, 11/2017 - [facility] Past Anesthesia/Blood Transfusion Reactions: No Reported Reaction Additional Past Anesthesia/Blood Transfusion Reaction / Comment(s): mother had hard time waking up with anesthesia Past Psychological History: Anxiety, Depression, PTSD Smoking Status: Former smoker Past Alcohol Use History: None Reported Past Drug Use History: None Reported, Marijuana - Past Family History Mother Family Medical History: Cancer Additional Family Medical History / Comment(s): knows has cardiac probs unsure of dx,stomach CA General Exam - General Exam Comments Initial Comments: 37 year old female, no distress. Limitations: no limitations General appearance: alert, in no apparent distress Head exam: Present: atraumatic, normocephalic, normal inspection Eye exam: Present: normal appearance, PERRL, EOMI. Absent: scleral icterus, conjunctival injection, periorbital swelling ENT exam: Present: normal exam, mucous membranes moist Neck exam: Present: normal inspection. Absent: tenderness, meningismus, lymphadenopathy Respiratory exam: Present: normal lung sounds bilaterally. Absent: respiratory distress, wheezes, rales, rhonchi, stridor Cardiovascular Exam: Present: regular rate, normal rhythm, normal heart sounds. Absent: systolic murmur, diastolic murmur, rubs, gallop, clicks GI/Abdominal exam: Present: soft Extremities exam: Present: normal inspection, full ROM, normal capillary refill. Absent: tenderness, pedal edema, joint swelling, calf tenderness Back exam: Present: normal inspection Neurological exam: Present: alert, oriented X3, CN II-XII intact Psychiatric exam: Present: normal affect, normal mood Skin exam: Present: warm, dry, intact, normal color. Absent: rash Course Vital Signs 06/12/18 06/12/18 12:55 16:46 Temperature 98.2 F Pulse Rate 83 69 Respiratory 16 18 Rate Blood Pressure 127/84 128/82 O2 Sat by Pulse 99 100 Oximetry Medical Decision Making - Medical Decision Making Patient is a 37-year-old female presents emergency department today with complaints of nausea and vomiting times one day. Patient's concern of having urinary tract infection. She is grossly 6 weeks . She denies any vaginal bleeding or discharge. She did have some painful urination. Patient denies any abdominal pain. She is given 2 L of fluids. Able to urinate. She states she feels much better after receiving fluids. Labwork was reviewed and unremarkable. Urinalysis did should have leukocyte Estrace. We will put the Patient on Keflex for bacterial . Patient will be discharged with close follow-up with primary care physician. QUESTIONS were answered return parameters were discussed. - Lab Data Result diagrams: 06/12/18 14:07 06/12/18 14:07 Lab Results 06/12/18 06/12/18 06/12/18 Range/Units 14:07 14:07 14:07 WBC 9.2 (3.8-10.6) k/uL RBC 5.17 (3.80-5.40) m/uL Hgb 14.6 (11.4-16.0) gm/dL Hct 42.6 (34.0-46.0) % MCV 82.5 (80.0-100.0) fL MCH 28.3 (25.0-35.0) pg MCHC 34.3 (31.0-37.0) g/dL RDW 13.8 (11.5-15.5) % Plt Count 249 (150-450) k/uL Neutrophils % 78 % Lymphocytes % 15 % Monocytes % 4 % Eosinophils % 1 % Basophils % 0 % Neutrophils # 7.2 (1.3-7.7) k/uL Lymphocytes # 1.4 (1.0-4.8) k/uL Monocytes # 0.4 (0-1.0) k/uL Eosinophils # 0.1 (0-0.7) k/uL Basophils # 0.0 (0-0.2) k/uL Sodium 137 (137-145) mmol/L Potassium 4.4 (3.5-5.1) mmol/L Chloride 106 (98-107) mmol/L Carbon Dioxide 24 (22-30) mmol/L Anion Gap 7 mmol/L BUN 10 (7-17) mg/dL Creatinine 0.57 (0.52-1.04) mg/dL Est GFR (CKD-EPI)AfAm >90 (>60 ml/min/1.73 sqM) Est GFR (CKD-EPI)NonAf >90 (>60 ml/min/1.73 sqM) Glucose 101 H (74-99) mg/dL Calcium 9.4 (8.4-10.2) mg/dL Total Bilirubin 0.4 (0.2-1.3) mg/dL AST 17 (14-36) U/L ALT 37 (9-52) U/L Alkaline Phosphatase 51 (38-126) U/L Total Protein 7.1 (6.3-8.2) g/dL Albumin 4.1 (3.5-5.0) g/dL Amylase 50 (30-110) U/L Lipase 48 (23-300) U/L HCG, Quant 18792.9 mIU/mL Urine Color Urine Appearance (Clear) Urine pH (5.0-8.0) Ur Specific [place] (1.001-1.035) Urine Protein (Negative) Urine Glucose (UA) (Negative) Urine Ketones (Negative) Urine Blood (Negative) Urine Nitrite (Negative) Urine Bilirubin (Negative) Urine Urobilinogen (<2.0) mg/dL Ur Leukocyte Esterase (Negative) Urine RBC (0-5) /hpf Urine WBC (0-5) /hpf Ur Squamous Epith Cells (0-4) /hpf Urine Mucus (None) /hpf Blood Type A Positive Blood Type Recheck No 06/12/18 Range/Units 16:00 WBC (3.8-10.6) k/uL RBC (3.80-5.40) m/uL Hgb (11.4-16.0) gm/dL Hct (34.0-46.0) % MCV (80.0-100.0) fL MCH (25.0-35.0) pg MCHC (31.0-37.0) g/dL RDW (11.5-15.5) % Plt Count (150-450) k/uL Neutrophils % % Lymphocytes % % Monocytes % % Eosinophils % % Basophils % % Neutrophils # (1.3-7.7) k/uL Lymphocytes # (1.0-4.8) k/uL Monocytes # (0-1.0) k/uL Eosinophils # (0-0.7) k/uL Basophils # (0-0.2) k/uL Sodium (137-145) mmol/L Potassium (3.5-5.1) mmol/L Chloride (98-107) mmol/L Carbon Dioxide (22-30) mmol/L Anion Gap mmol/L BUN (7-17) mg/dL Creatinine (0.52-1.04) mg/dL Est GFR (CKD-EPI)AfAm (>60 ml/min/1.73 sqM) Est GFR (CKD-EPI)NonAf (>60 ml/min/1.73 sqM) Glucose (74-99) mg/dL Calcium (8.4-10.2) mg/dL Total Bilirubin (0.2-1.3) mg/dL AST (14-36) U/L ALT (9-52) U/L Alkaline Phosphatase (38-126) U/L Total Protein (6.3-8.2) g/dL Albumin (3.5-5.0) g/dL Amylase (30-110) U/L Lipase (23-300) U/L HCG, Quant mIU/mL Urine Color Yellow Urine Appearance Cloudy H (Clear) Urine pH 5.5 (5.0-8.0) Ur Specific [place] 1.023 (1.001-1.035) Urine Protein Trace H (Negative) Urine Glucose (UA) Negative (Negative) Urine Ketones Trace H (Negative) Urine Blood Negative (Negative) Urine Nitrite Negative (Negative) Urine Bilirubin Negative (Negative) Urine Urobilinogen <2.0 (<2.0) mg/dL Ur Leukocyte Esterase Small H (Negative) Urine RBC 2 (0-5) /hpf Urine WBC 5 (0-5) /hpf Ur Squamous Epith Cells 3 (0-4) /hpf Urine Mucus Moderate H (None) /hpf Blood Type Blood Type Recheck - Radiology Data Radiology results: report reviewed Single IUP measuring 6 weeks and 4 days. Disposition Clinical Impression: , Nausea & vomiting, UTI (urinary tract infection) Disposition: HOME SELF-CARE Condition: Good Instructions (If sedation given, give patient instructions): Nausea and Vomiting in (ED) Additional Instructions: Follow up with primary care physician and OBGYN. Return to emergency department if any alarming signs or symptoms occur. Prescriptions: Cephalexin [Keflex] 500 mg PO Q6HR 3 Days #12 cap Metoclopramide [Reglan] 10 mg PO ACHS #12 tab Is patient prescribed a controlled substance at d/c from ED?: No Referrals: Anna Domingo MD [Primary Care Provider] - 1-2 days Time of Disposition: 16:28
[2018-06-12 14:28] LABS: Basophils % (A) 0 %; Eosinophils # (A) 0.1 k/uL (0-0.7); Eosinophils % (A) 1 %; HCT 42.6 % (34.0-46.0); HGB 14.6 gm/dL (11.4-16.0); Lymphocytes # (A) 1.4 k/uL (1.0-4.8); Lymphocytes % (A) 15 %; MCH 28.3 pg (25.0-35.0); MCHC 34.3 g/dL (31.0-37.0); MCV 82.5 fL (80.0-100.0); Mean Platelet Volume 7.6; Monocytes # (A) 0.4 k/uL (0-1.0); Monocytes % (A) 4 %; Neutrophils # (A) 7.2 k/uL (1.3-7.7); Neutrophils % (A) 78 %; Platelet Count 249 k/uL (150-450); RBC 5.17 m/uL (3.80-5.40); RDW 13.8 % (11.5-15.5); WBC 9.2 k/uL (3.8-10.6)
[2018-06-12 14:50] LABS: ALT 37 U/L (9-52); AST 17 U/L (14-36); Albumin 4.1 g/dL (3.5-5.0); Alkaline Phosphatase 51 U/L (38-126); Amylase 50 U/L (30-110); Anion Gap 7 mmol/L; Blood Urea Nitrogen 10 mg/dL (7-17); Calcium 9.4 mg/dL (8.4-10.2); Carbon Dioxide 24 mmol/L (22-30); Chloride 106 mmol/L (98-107); Glucose 101 mg/dL (74-99); Lipase 48 U/L (23-300); Potassium 4.4 mmol/L (3.5-5.1); Sodium 137 mmol/L (137-145); Total Bilirubin 0.4 mg/dL (0.2-1.3); Total Protein 7.1 g/dL (6.3-8.2)
[2018-06-12 15:34] LABS: HCG,Quantitative Serum 53821.9 mIU/mL
--- NOTE | 2018-06-12 15:37 | US ---
EXAMINATION TYPE: Transabdominal DATE OF EXAM: 08/17/17 COMPARISON: NONE CLINICAL HISTORY: Pain. Patient unable to keep anything down. EXAM PERFORMED: Transvaginal (TV) and Transabdominal (TA), endovaginal scanning done for better eval uation of the fetus EXAM MEASUREMENTS: GESTATIONAL AGE / DATING Physician Established: Not yet established Dates by LMP: (7 weeks/4 days) EDC: 01/25/2019 Dates by First Scan: No previous this is first scan Dates by Current Scan for: (6 weeks/4 days) EDC: 02/01/2019 MATERNAL ANATOMY Uterus: 9.5 x 6.0 x 5.8 cm Right Ovary: 3.3 x 2.1 x 2.8 cm Left Ovary: 3.7 x 1.6 x 3.4 cm Post CDS / Adnexa: wnl Presence of free fluid: none GESTATION / SURVEY CRL: 0.7 cm (6 weeks/4 days) Yolk Sac (normal less than 6mm): 0.2 cm Heart Rate: 121 bpm Rhythm: Normal IUP: Viable IUP Date of LMP: 04/20/2018 Beta HcG (if available): not available Viable IUP an 6 weeks 4 days. Single viable intrauterine corresponding to ultrasound age 6 weeks 4 days with estimated da te of delivery 02/01/2019 by today's exam IMPRESSION:
[2018-06-12 16:22] LABS: Appearance,Urine Cloudy (Clear); Bilirubin,Urine Negative (Negative); Blood,Urine Negative (Negative); Color,Urine Yellow; Glucose,Urine (UA) Negative (Negative); Ketones,Urine Trace (Negative); Leukocyte Esterase,Urine Small (Negative); Mucus,Urine Moderate /hpf; Nitrite,Urine Negative (Negative); PH, Urine 5.5 (5.0-8.0); Protein,Urine Trace (Negative); RBC,Urine 2 /hpf (0-5); Specific Gravity,Urine 1.023 (1.001-1.035); Squamous Epithelial Cell,Urine 3 /hpf (0-4); Urobilinogen,Urine <2.0 mg/dL (<2.0)
[2018-06-12 16:47] VITALS: BP 128/82; PULSE 69; RESP 18
== END 2018-06-12 16:47 | disposition home or self-care (01) ==
LOC: EC 12:40
DX: O23.41 Unspecified infection of urinary tract in pregnancy, first trimester (principal); Z3A.01 Less than 8 weeks gestation of pregnancy; O21.9 Vomiting of pregnancy, unspecified; Z87.891 Personal history of nicotine dependence; Z90.49 Acquired absence of other specified parts of digestive tract; Z53.8 Procedure and treatment not carried out for other reasons
CPT/HCPCS: 36415; 86900; 86901; 80053; 82150; 83690; 85025; 81001; 84702; 76801; 76817; 99284; 96374; 96375; 96361 ×2; J1200; J2765

== ENCOUNTER 2018-06-19 00:28 | Emergency (ER) | payer OTHER ==
[2018-06-19 01:04] VITALS: RESP 18
[2018-06-19] MEDS ORDERED: SODIUM CHLORIDE 0.9% 1,000 ML IV ONE (01:39)
--- NOTE | 2018-06-19 01:56 | ED ---
General Adult HPI - General Chief complaint: Vaginal Bleeding Stated complaint: Poss Miscarriage Time Seen by Provider: 06/19/18 01:07 Source: patient, RN notes reviewed Mode of arrival: ambulatory Limitations: no limitations - History of Present Illness Initial comments: 37-year-old female presents to the emergency department for a chief complaint of vaginal bleeding x hours. Patient is currently 7 weeks . Patient states a few hours ago she had a sudden gush of bright red blood out of the vagina. Patient states she has had cramping and mild bleeding since that time. Patient is concerned she may be having a miscarriage. Patient has no other complaints at this time including shortness of breath, chest pain, nausea or vomiting, headache, or visual changes. - Related Data Home Medications Medication Instructions Recorded Confirmed diphenhydrAMINE [Benadryl] 25 mg PO HS PRN 06/12/18 06/12/18 Previous Rx's Medication Instructions Recorded Cephalexin [Keflex] 500 mg PO Q6HR 3 Days #12 cap 06/12/18 Metoclopramide [Reglan] 10 mg PO ACHS #12 tab 06/12/18 Allergies Allergy/AdvReac Type Severity Reaction Status Date / Time No Known Allergies Allergy Verified 06/19/18 01:03 Review of Systems ROS Statement: Those systems with pertinent positive or pertinent negative responses have been documented in the HPI. ROS Other: All systems not noted in ROS Statement are negative. Past Medical History Past Medical History: Asthma, Fibromyalgia Additional Past Medical History / Comment(s): chronic pain, herniated discs in lower back and neck, IBS History of Any Multi-Drug Resistant Organisms: None Reported Past Surgical History: Section, Cholecystectomy Additional Past Surgical History / Comment(s): laminectomy 04/2015, 11/2017 - [facility] Past Anesthesia/Blood Transfusion Reactions: No Reported Reaction Additional Past Anesthesia/Blood Transfusion Reaction / Comment(s): mother had hard time waking up with anesthesia Past Psychological History: Anxiety, Depression, PTSD Smoking Status: Former smoker Past Alcohol Use History: None Reported Past Drug Use History: None Reported, Marijuana - Past Family History Mother Family Medical History: Cancer Additional Family Medical History / Comment(s): knows has cardiac probs unsure of dx,stomach CA General Exam Limitations: no limitations General appearance: alert, in no apparent distress Head exam: Present: atraumatic, normocephalic, normal inspection Eye exam: Present: normal appearance, PERRL, EOMI. Absent: scleral icterus, conjunctival injection, periorbital swelling ENT exam: Present: normal exam, mucous membranes moist Neck exam: Present: normal inspection, full ROM. Absent: tenderness, meningismus, lymphadenopathy Respiratory exam: Present: normal lung sounds bilaterally. Absent: respiratory distress, wheezes, rales, rhonchi, stridor Cardiovascular Exam: Present: regular rate, normal rhythm, normal heart sounds. Absent: systolic murmur, diastolic murmur, rubs, gallop, clicks GI/Abdominal exam: Present: soft, normal bowel sounds. Absent: distended, tenderness, guarding, rebound, rigid Speculum exam: Present: vaginal bleeding (vaginal bleeding noted on exam) By manual exam: Present: normal by manual exam. Absent: cervical motion tenderness, adnexal tenderness, adnexal mass, uterine enlargement, uterine tenderness Neurological exam: Present: alert, oriented X3, CN II-XII intact Psychiatric exam: Present: normal affect, normal mood Course Vital Signs 06/19/18 01:00 Temperature 99.5 F Pulse Rate 87 Respiratory 18 Rate Blood Pressure 150/89 O2 Sat by Pulse 97 Oximetry Medical Decision Making - Medical Decision Making 37-year-old female presents to the emergency department for a chief complaint of vaginal bleeding. Patient is currently 7 weeks . Speculum exam did reveal presence of blood CBC CMP unremarkable. Urine is positive for blood. White cells are likely related to high amount of red blood cells but urine will be cultured. Ultrasound shows viable IUP. There is also probable chorionic bleed. Blood type is A+, no need for RhoGAM. Patient was educated on threatened . Patient will follow up with [facility] and return here if she has any worsening symptoms. - Lab Data Result diagrams: 06/19/18 01:50 06/19/18 01:50 Lab Results 06/19/18 06/19/18 06/19/18 Range/Units 01:50 01:50 01:50 WBC (3.8-10.6) k/uL RBC (3.80-5.40) m/uL Hgb (11.4-16.0) gm/dL Hct (34.0-46.0) % MCV (80.0-100.0) fL MCH (25.0-35.0) pg MCHC (31.0-37.0) g/dL RDW (11.5-15.5) % Plt Count (150-450) k/uL Neutrophils % % Lymphocytes % % Monocytes % % Eosinophils % % Basophils % % Neutrophils # (1.3-7.7) k/uL Lymphocytes # (1.0-4.8) k/uL Monocytes # (0-1.0) k/uL Eosinophils # (0-0.7) k/uL Basophils # (0-0.2) k/uL Sodium 137 (137-145) mmol/L Potassium 4.2 (3.5-5.1) mmol/L Chloride 106 (98-107) mmol/L Carbon Dioxide 24 (22-30) mmol/L Anion Gap 7 mmol/L BUN 14 (7-17) mg/dL Creatinine 0.64 (0.52-1.04) mg/dL Est GFR (CKD-EPI)AfAm >90 (>60 ml/min/1.73 sqM) Est GFR (CKD-EPI)NonAf >90 (>60 ml/min/1.73 sqM) Glucose 106 H (74-99) mg/dL Calcium 9.4 (8.4-10.2) mg/dL Total Bilirubin 0.2 (0.2-1.3) mg/dL AST 11 L (14-36) U/L ALT 27 (9-52) U/L Alkaline Phosphatase 40 (38-126) U/L Total Protein 6.4 (6.3-8.2) g/dL Albumin 3.6 (3.5-5.0) g/dL HCG, Quant 67566.9 mIU/mL Urine Color Yellow Urine Appearance Cloudy H (Clear) Urine pH 5.0 (5.0-8.0) Ur Specific [place] 1.026 (1.001-1.035) Urine Protein 1+ H (Negative) Urine Glucose (UA) Negative (Negative) Urine Ketones Negative (Negative) Urine Blood Large H (Negative) Urine Nitrite Negative (Negative) Urine Bilirubin Negative (Negative) Urine Urobilinogen 2.0 (<2.0) mg/dL Ur Leukocyte Esterase Small H (Negative) Urine RBC >182 H (0-5) /hpf Urine WBC 20 H (0-5) /hpf Ur Squamous Epith Cells 3 (0-4) /hpf Urine Mucus Few H (None) /hpf Urine HCG, Qual Detected (Not Detectd) Blood Type Blood Type Recheck 06/19/18 06/19/18 Range/Units 01:50 01:50 WBC 10.0 (3.8-10.6) k/uL RBC 4.42 (3.80-5.40) m/uL Hgb 12.5 (11.4-16.0) gm/dL Hct 35.8 (34.0-46.0) % MCV 80.9 (80.0-100.0) fL MCH 28.3 (25.0-35.0) pg MCHC 35.0 (31.0-37.0) g/dL RDW 14.1 (11.5-15.5) % Plt Count 223 (150-450) k/uL Neutrophils % 76 % Lymphocytes % 16 % Monocytes % 4 % Eosinophils % 2 % Basophils % 0 % Neutrophils # 7.6 (1.3-7.7) k/uL Lymphocytes # 1.6 (1.0-4.8) k/uL Monocytes # 0.4 (0-1.0) k/uL Eosinophils # 0.2 (0-0.7) k/uL Basophils # 0.0 (0-0.2) k/uL Sodium (137-145) mmol/L Potassium (3.5-5.1) mmol/L Chloride (98-107) mmol/L Carbon Dioxide (22-30) mmol/L Anion Gap mmol/L BUN (7-17) mg/dL Creatinine (0.52-1.04) mg/dL Est GFR (CKD-EPI)AfAm (>60 ml/min/1.73 sqM) Est GFR (CKD-EPI)NonAf (>60 ml/min/1.73 sqM) Glucose (74-99) mg/dL Calcium (8.4-10.2) mg/dL Total Bilirubin (0.2-1.3) mg/dL AST (14-36) U/L ALT (9-52) U/L Alkaline Phosphatase (38-126) U/L Total Protein (6.3-8.2) g/dL Albumin (3.5-5.0) g/dL HCG, Quant mIU/mL Urine Color Urine Appearance (Clear) Urine pH (5.0-8.0) Ur Specific [place] (1.001-1.035) Urine Protein (Negative) Urine Glucose (UA) (Negative) Urine Ketones (Negative) Urine Blood (Negative) Urine Nitrite (Negative) Urine Bilirubin (Negative) Urine Urobilinogen (<2.0) mg/dL Ur Leukocyte Esterase (Negative) Urine RBC (0-5) /hpf Urine WBC (0-5) /hpf Ur Squamous Epith Cells (0-4) /hpf Urine Mucus (None) /hpf Urine HCG, Qual (Not Detectd) Blood Type A Positive Blood Type Recheck No Disposition Clinical Impression: Subchorionic hemorrhage, Threatened miscarriage Disposition: HOME SELF-CARE Condition: Good Instructions (If sedation given, give patient instructions): Threatened Miscarriage (ED) Additional Instructions: Please follow up with [facility] in one to 2 days. If you have any worsening symptoms return to the emergency department. Is patient prescribed a controlled substance at d/c from ED?: No Referrals: Anna Domingo MD [Primary Care Provider] - 1-2 days Kendy Ackerman DO [Doctor of Osteopathic Medicine] - 1-2 days Time of Disposition: 03:37
[2018-06-19 02:10] LABS: Basophils % (A) 0 %; Eosinophils # (A) 0.2 k/uL (0-0.7); Eosinophils % (A) 2 %; HCT 35.8 % (34.0-46.0); HGB 12.5 gm/dL (11.4-16.0); Lymphocytes # (A) 1.6 k/uL (1.0-4.8); Lymphocytes % (A) 16 %; MCH 28.3 pg (25.0-35.0); MCV 80.9 fL (80.0-100.0); Mean Platelet Volume 7.2; Monocytes # (A) 0.4 k/uL (0-1.0); Monocytes % (A) 4 %; Neutrophils # (A) 7.6 k/uL (1.3-7.7); Neutrophils % (A) 76 %; Platelet Count 223 k/uL (150-450); RBC 4.42 m/uL (3.80-5.40); RDW 14.1 % (11.5-15.5)
[2018-06-19 02:12] LABS: Appearance,Urine Cloudy (Clear); Bilirubin,Urine Negative (Negative); Blood,Urine Large (Negative); Color,Urine Yellow; Glucose,Urine (UA) Negative (Negative); Ketones,Urine Negative (Negative); Leukocyte Esterase,Urine Small (Negative); Mucus,Urine Few /hpf; Nitrite,Urine Negative (Negative); Protein,Urine 1+ (Negative); RBC,Urine >182 /hpf (0-5); Specific Gravity,Urine 1.026 (1.001-1.035); Squamous Epithelial Cell,Urine 3 /hpf (0-4); WBC,Urine 20 /hpf (0-5)
[2018-06-19 02:17] LABS: ALT 27 U/L (9-52); AST 11 U/L (14-36); Albumin 3.6 g/dL (3.5-5.0); Alkaline Phosphatase 40 U/L (38-126); Anion Gap 7 mmol/L; Blood Urea Nitrogen 14 mg/dL (7-17); Calcium 9.4 mg/dL (8.4-10.2); Carbon Dioxide 24 mmol/L (22-30); Chloride 106 mmol/L (98-107); Glucose 106 mg/dL (74-99); Potassium 4.2 mmol/L (3.5-5.1); Sodium 137 mmol/L (137-145); Total Bilirubin 0.2 mg/dL (0.2-1.3); Total Protein 6.4 g/dL (6.3-8.2)
--- NOTE | 2018-06-19 03:12 | US ---
EXAMINATION TYPE: Transabdominal DATE OF EXAM: 08/17/17 COMPARISON: US 06/12/18 CLINICAL HISTORY: pain. bleeding EXAM PERFORMED: Transvaginal (TV) and Transabdominal (TA) EXAM MEASUREMENTS: GESTATIONAL AGE / DATING Physician Established: Not yet established Dates by LMP: (8 weeks/4 days) EDC: 01/25/2019 Dates by First Scan: (7 weeks/4 days) EDC: 02/01/2019 Dates by Current Scan for: (7 weeks/4 days) EDC: 02/01/2019 MATERNAL ANATOMY Uterus: 10.6 x 6.2 x 8.3 cm Right Ovary: 3.0 x 1.9 x 1.6 cm Left Ovary: 2.8 x 1.4 x 2.1 cm Post CDS / Adnexa: wnl Presence of free fluid: No Presence of corpus luteal cyst: No Presence of subchorionic bleed: Yes, measuring 3.2 x 1.7 x 3.4 cm GESTATION / SURVEY CRL: 1.32 cm (7 weeks/4 days)) Yolk Sac (normal less than 6mm): 2 mm Heart Rate: 157 bpm Rhythm: Normal IUP: Viable IUP Date of LMP: 04/20/2018 Beta HcG (if available): Not available at this time Viable IUP with an PACO of 02/01/2019 by this exam. Probable subchorionic bleed. IMPRESSION: There is satisfactory growth compared to 06/12/2018. Possible 3.2 x 1.5 cm subchorionic hemorrha ge.
[2018-06-19 03:31] LABS: HCG,Quantitative Serum 93491.9 mIU/mL
[2018-06-19 03:53] VITALS: BP 137/74; PULSE 72; TEMP 98.7
[2018-06-20 15:35] LABS: C. trachomatis,PCR Negative (Neg,Equiv); Chlamydia trachomatis Source Cervix; N. gonorrhoeae,PCR Negative (Neg,Equiv); Neisseria Source Cervix
== END 2018-06-19 03:45 | disposition home or self-care (01) ==
LOC: EC 00:28
DX: O20.0 Threatened abortion (principal); Z87.891 Personal history of nicotine dependence; Z3A.01 Less than 8 weeks gestation of pregnancy
CPT/HCPCS: 36415; 76801; 76817; 80053; 81001; 81025; 84702; 85025; 86900; 86901; 87086; 87491; 87591; 87808; 96360; 99284

== ENCOUNTER 2018-08-28 09:49 | Emergency (ER) | payer OTHER ==
[2018-08-28 09:59] VITALS: RESP 18
[2018-08-28] MEDS ORDERED: SODIUM CHLORIDE 0.9% 2,000 ML IV STA (10:02)
[2018-08-28] MEDS ORDERED: diphenhydrAMINE 50 MG/ML 1 ML VIAL IVP STA (10:02)
[2018-08-28] MEDS ORDERED: METOCLOPRAMIDE 5 MG/ML 2 ML VIAL IVP STA (10:02)
[2018-08-28 10:29] LABS: Basophils % (A) 0 %; Eosinophils # (A) 0.2 k/uL (0-0.7); Eosinophils % (A) 1 %; HCT 35.3 % (34.0-46.0); HGB 12.4 gm/dL (11.4-16.0); Lymphocytes # (A) 1.2 k/uL (1.0-4.8); Lymphocytes % (A) 10 %; MCH 28.5 pg (25.0-35.0); MCHC 35.1 g/dL (31.0-37.0); MCV 81.1 fL (80.0-100.0); Mean Platelet Volume 7.7; Monocytes # (A) 0.4 k/uL (0-1.0); Monocytes % (A) 3 %; Neutrophils # (A) 10.1 k/uL (1.3-7.7); Neutrophils % (A) 85 %; Platelet Count 220 k/uL (150-450); RBC 4.35 m/uL (3.80-5.40); RDW 14.4 % (11.5-15.5); WBC 11.9 k/uL (3.8-10.6)
--- NOTE | 2018-08-28 10:29 | ED ---
Nausea/Vomiting/Diarrhea HPI - General Chief complaint: Nausea/Vomiting/Diarrhea Stated complaint: 17 WEEKS AND VOMITING Time Seen by Provider: 08/28/18 10:02 Source: patient, RN notes reviewed, old records reviewed Mode of arrival: ambulatory Limitations: no limitations - History of Present Illness Initial comments: Patient is a 37-year-old female, G5, P3. She is currently 17 weeks . She presents emergency department today complaining of dry heaving nausea for the past 2 days. She's been having severe morning sickness throughout this entire . Patient states that she threw up so much that she feels like she caused a slipped disc in her back yesterday. She denies any dysuria or vaginal discharge or bleeding. Patient states that she has no known fevers or reports off-and-on chills. She reports that she's been having some diarrhea as well. She attributes or diarrhea to her chronic IBS. - Related Data Home Medications Medication Instructions Recorded Confirmed diphenhydrAMINE [Benadryl] 25 mg PO HS PRN 06/12/18 06/12/18 Previous Rx's Medication Instructions Recorded Cephalexin [Keflex] 500 mg PO Q6HR 3 Days #12 cap 06/12/18 Metoclopramide [Reglan] 10 mg PO ACHS #12 tab 06/12/18 Metoclopramide [Reglan] 10 mg PO ACHS #12 tab 08/28/18 Allergies Allergy/AdvReac Type Severity Reaction Status Date / Time No Known Allergies Allergy Verified 08/28/18 09:56 Review of Systems ROS Statement: Those systems with pertinent positive or pertinent negative responses have been documented in the HPI. ROS Other: All systems not noted in ROS Statement are negative. Past Medical History Past Medical History: Asthma, Fibromyalgia Additional Past Medical History / Comment(s): chronic pain, herniated discs in lower back and neck, IBS History of Any Multi-Drug Resistant Organisms: None Reported Past Surgical History: Section, Cholecystectomy Additional Past Surgical History / Comment(s): laminectomy 04/2015, 11/2017 - [facility] Past Anesthesia/Blood Transfusion Reactions: No Reported Reaction Additional Past Anesthesia/Blood Transfusion Reaction / Comment(s): mother had hard time waking up with anesthesia Past Psychological History: Anxiety, Depression, PTSD Smoking Status: Former smoker Past Alcohol Use History: None Reported Past Drug Use History: None Reported, Marijuana - Past Family History Mother Family Medical History: Cancer Additional Family Medical History / Comment(s): knows has cardiac probs unsure of dx,stomach CA General Exam - General Exam Comments Initial Comments: 37-year-old female. Alert and oriented 3. No distress. Limitations: no limitations General appearance: alert, in no apparent distress Head exam: Present: atraumatic, normocephalic, normal inspection Eye exam: Present: normal appearance, PERRL, EOMI. Absent: scleral icterus, conjunctival injection, periorbital swelling ENT exam: Present: normal exam, mucous membranes moist Neck exam: Present: normal inspection. Absent: tenderness, meningismus, lymphadenopathy Respiratory exam: Present: normal lung sounds bilaterally. Absent: respiratory distress, wheezes, rales, rhonchi, stridor Cardiovascular Exam: Present: regular rate, normal rhythm, normal heart sounds. Absent: systolic murmur, diastolic murmur, rubs, gallop, clicks GI/Abdominal exam: Present: soft, normal bowel sounds. Absent: distended, tenderness, guarding, rebound, rigid Extremities exam: Present: normal inspection, full ROM, normal capillary refill. Absent: tenderness, pedal edema, joint swelling, calf tenderness Back exam: Present: normal inspection Neurological exam: Present: alert, oriented X3, CN II-XII intact Psychiatric exam: Present: normal affect, normal mood Skin exam: Present: warm Course Vital Signs 08/28/18 09:56 Temperature 98.3 F Pulse Rate 88 Respiratory 18 Rate Blood Pressure 136/81 O2 Sat by Pulse 98 Oximetry Medical Decision Making - Lab Data Result diagrams: 08/28/18 10:17 08/28/18 10:17 Lab Results 08/28/18 08/28/18 08/28/18 Range/Units 10:17 10:17 11:21 WBC 11.9 H (3.8-10.6) k/uL RBC 4.35 (3.80-5.40) m/uL Hgb 12.4 (11.4-16.0) gm/dL Hct 35.3 (34.0-46.0) % MCV 81.1 (80.0-100.0) fL MCH 28.5 (25.0-35.0) pg MCHC 35.1 (31.0-37.0) g/dL RDW 14.4 (11.5-15.5) % Plt Count 220 (150-450) k/uL Neutrophils % 85 % Lymphocytes % 10 % Monocytes % 3 % Eosinophils % 1 % Basophils % 0 % Neutrophils # 10.1 H (1.3-7.7) k/uL Lymphocytes # 1.2 (1.0-4.8) k/uL Monocytes # 0.4 (0-1.0) k/uL Eosinophils # 0.2 (0-0.7) k/uL Basophils # 0.0 (0-0.2) k/uL Sodium 136 L (137-145) mmol/L Potassium 4.2 (3.5-5.1) mmol/L Chloride 107 (98-107) mmol/L Carbon Dioxide 19 L (22-30) mmol/L Anion Gap 10 mmol/L BUN 5 L (7-17) mg/dL Creatinine 0.35 L (0.52-1.04) mg/dL Est GFR (CKD-EPI)AfAm >90 (>60 ml/min/1.73 sqM) Est GFR (CKD-EPI)NonAf >90 (>60 ml/min/1.73 sqM) Glucose 108 H (74-99) mg/dL Calcium 9.5 (8.4-10.2) mg/dL Total Bilirubin 0.4 (0.2-1.3) mg/dL AST 15 (14-36) U/L ALT 28 (9-52) U/L Alkaline Phosphatase 56 (38-126) U/L Total Protein 7.0 (6.3-8.2) g/dL Albumin 3.9 (3.5-5.0) g/dL Amylase 56 (30-110) U/L Lipase 41 (23-300) U/L Urine Color Yellow Urine Appearance Cloudy H (Clear) Urine pH 6.0 (5.0-8.0) Ur Specific [place] 1.024 (1.001-1.035) Urine Protein 1+ H (Negative) Urine Glucose (UA) Negative (Negative) Urine Ketones 3+ H (Negative) Urine Blood Negative (Negative) Urine Nitrite Negative (Negative) Urine Bilirubin Negative (Negative) Urine Urobilinogen <2.0 (<2.0) mg/dL Ur Leukocyte Esterase Trace H (Negative) Urine RBC 2 (0-5) /hpf Urine WBC 3 (0-5) /hpf Ur Squamous Epith Cells 3 (0-4) /hpf Urine Mucus Many H (None) /hpf Disposition Clinical Impression: Nausea & vomiting, 17 weeks gestation of Disposition: HOME SELF-CARE Condition: Good Instructions (If sedation given, give patient instructions): Acute Nausea and Vomiting (ED) Additional Instructions: Follow-up with primary care doctor. Patient should return to the emergency department if any alarming signs or symptoms occur. Prescriptions: Metoclopramide [Reglan] 10 mg PO ACHS #12 tab Is patient prescribed a controlled substance at d/c from ED?: No Referrals: Anna Domingo MD [Primary Care Provider] - 1-2 days Time of Disposition: 13:19
[2018-08-28 10:36] LABS: ALT 28 U/L (9-52); AST 15 U/L (14-36); Albumin 3.9 g/dL (3.5-5.0); Alkaline Phosphatase 56 U/L (38-126); Amylase 56 U/L (30-110); Anion Gap 10 mmol/L; Blood Urea Nitrogen 5 mg/dL (7-17); Calcium 9.5 mg/dL (8.4-10.2); Carbon Dioxide 19 mmol/L (22-30); Chloride 107 mmol/L (98-107); Glucose 108 mg/dL (74-99); Lipase 41 U/L (23-300); Potassium 4.2 mmol/L (3.5-5.1); Sodium 136 mmol/L (137-145); Total Bilirubin 0.4 mg/dL (0.2-1.3)
[2018-08-28 11:47] LABS: Appearance,Urine Cloudy (Clear); Bilirubin,Urine Negative (Negative); Blood,Urine Negative (Negative); Color,Urine Yellow; Glucose,Urine (UA) Negative (Negative); Ketones,Urine 3+ (Negative); Leukocyte Esterase,Urine Trace (Negative); Mucus,Urine Many /hpf; Nitrite,Urine Negative (Negative); Protein,Urine 1+ (Negative); RBC,Urine 2 /hpf (0-5); Specific Gravity,Urine 1.024 (1.001-1.035); Squamous Epithelial Cell,Urine 3 /hpf (0-4); Urobilinogen,Urine <2.0 mg/dL (<2.0); WBC,Urine 3 /hpf (0-5)
[2018-08-28 13:35] VITALS: BP 135/83; PULSE 85; TEMP 99.9
== END 2018-08-28 13:33 | disposition home or self-care (01) ==
LOC: EC 09:49
DX: O21.9 Vomiting of pregnancy, unspecified (principal); O99.89 Other specified diseases and conditions complicating pregnancy, childbirth and the puerperium; R19.7 Diarrhea, unspecified; Z87.19 Personal history of other diseases of the digestive system; Z90.49 Acquired absence of other specified parts of digestive tract; Z87.891 Personal history of nicotine dependence; Z3A.17 17 weeks gestation of pregnancy
CPT/HCPCS: 36415; 80053; 82150; 83690; 85025; 81001; 99284; 96374; 96375; 96361; J1200; J2765

== ENCOUNTER 2018-12-13 18:15 | Outpatient (CLI) | payer OTHER ==
[2018-12-13 19:02] VITALS: BP 108/69; PULSE 87; RESP 16; TEMP 97.1
[2018-12-13] MEDS: LACTATED RINGERS 500 ML IV SCH ×3 (19:37→20:36)
[2018-12-13 19:40] LABS: Anisocytosis Slight; Basophils % (A) 0 %; Eosinophils # (A) 0.1 k/uL (0-0.7); Eosinophils % (A) 1 %; HCT 36.6 % (34.0-46.0); HGB 12.2 gm/dL (11.4-16.0); Lymphocytes # (A) 1.5 k/uL (1.0-4.8); Lymphocytes % (A) 12 %; MCH 28.5 pg (25.0-35.0); MCHC 33.5 g/dL (31.0-37.0); MCV 85.3 fL (80.0-100.0); Mean Platelet Volume 8.3; Monocytes # (A) 0.4 k/uL (0-1.0); Monocytes % (A) 4 %; Neutrophils # (A) 9.7 k/uL (1.3-7.7); Neutrophils % (A) 82 %; Platelet Count 222 k/uL (150-450); RBC 4.29 m/uL (3.80-5.40); RDW 16.8 % (11.5-15.5); WBC 11.9 k/uL (3.8-10.6)
[2018-12-13 19:43] LABS: Appearance,Urine Cloudy (Clear); Bilirubin,Urine Negative (Negative); Blood,Urine Negative (Negative); Color,Urine Yellow; Glucose,Urine (UA) Negative (Negative); Hyaline Casts,Urine 24 /lpf (0-2); Ketones,Urine 4+ (Negative); Leukocyte Esterase,Urine Large (Negative); Mucus,Urine Many /hpf; Nitrite,Urine Negative (Negative); Protein,Urine 2+ (Negative); RBC,Urine 1 /hpf (0-5); Specific Gravity,Urine 1.029 (1.001-1.035); Squamous Epithelial Cell,Urine 10 /hpf (0-4); WBC,Urine 10 /hpf (0-5)
[2018-12-13 19:54] LABS: Amphetamine Screen,Urine Not Detected (NotDetected); Barbiturate Screen,Urine Not Detected (NotDetected); Benzodiazepines Screen,Urine Not Detected (NotDetected); Cocaine Screen,Urine Not Detected (NotDetected); Methadone Screen, Urine Not Detected (NotDetected); Opiate Screen,Urine Not Detected (NotDetected); Oxycodone Screen, Urine Not Detected (NotDetected); Phencyclidine Screen,Urine Not Detected (NotDetected); Tricyclic Antidepressant,Urine Not Detected (NotDetected); Urn Cannabinoid Scrn Detected (NotDetected)
[2018-12-13 20:05] LABS: ALT 40 U/L (9-52); AST 36 U/L (14-36); African American GFR (CKD) >90 (>60 ml/min/1.73 sqM); Albumin 3.6 g/dL (3.5-5.0); Alkaline Phosphatase 107 U/L (38-126); Anion Gap 14 mmol/L; Blood Urea Nitrogen 7 mg/dL (7-17); Calcium 9.2 mg/dL (8.4-10.2); Carbon Dioxide 14 mmol/L (22-30); Chloride 108 mmol/L (98-107); Glucose 81 mg/dL (74-99); Sodium 136 mmol/L (137-145); Total Bilirubin 0.6 mg/dL (0.2-1.3); Total Protein 6.9 g/dL (6.3-8.2)
--- NOTE | 2018-12-13 21:21 | P.MSEPDOC ---
Presenting Problems - Arrival Data Date of Arrival on Unit: 12/13/18 Time of Arrival on Unit: 18:15 Mode of Transport: Wheelchair - Complaint OB-Reason for Admission/Chief Complaint: Acute Nausea/Vomiting Medical History - Information : 5 Para: 3 Term: 3 : 0 Abortions: Spontaneous or Elective: 1 Number of Living Children: 3 - Gestational Age Gestational Age by PACO (wks/days): 32 Weeks and 6 Days - History Complications: GDM Review of Systems - Review of Systems Constitutional: No problems Breast: No problems ENT: No problems Cardiovascular: No problems Respiratory: No problems Gastrointestinal: No problems Genitourinary: No problems Musculoskeletal: No problems Neurological: No problems Skin: No problems Vital Signs - Temperature Temperature: 97.1 F Temperature Source: Temporal Artery Scan - Pulse Right Brachial Pulse Rate: 87 Pulse Assessment Method: Automatic Cuff - Respirations Respiratory Rate: 16 Oxygen Delivery Method: Room Air - Blood Pressure Right Arm Blood Pressure: 108/69 Blood Pressure Mean: 82 Blood Pressure Source: Automatic Cuff Medical Screen Scoring (Pre) - Cervical Exam Dilation: Exam Deferred Effacement: Exam Deferred Membranes: Intact - Uterine Contractions Frequency: N/A, > 5 minutes apart = 1 Duration: N/A Intensity: N/A - Maternal Vital Signs Maternal Temperature: N/A Maternal Blood Pressure: N/A Signs of Preeclampsia: Nausea/Vomiting = 1 Maternal Respirations: N/A - Maternal Trauma Maternal Trauma: N/A - Assessment - Baby A Baseline FHR: 145 Heart Rate - NICHD Category: Category I (Normal) = 0 NST: Reactive Position: N/A Station: N/A - Total Score - Baby A Total Score - Baby A: 2 - Total Score - Baby B Total Score - Baby B: 2 - Total Score - Baby C Total Score - Baby C: 2 - Level of Risk - Baby A Level of Risk - Baby A: Low (0-5) - Level of Risk - Baby B Level of Risk - Baby B: Low (0-5) - Level of Risk - Baby C Level of Risk - Baby C: Low (0-5) Physician Notification (Pre) - Physician Notified Physician Notified Date: 12/13/18 Physician Notified Time: 18:55 Physician/Practitioner Notifed:: Dr. Moore Spoke With: Dr. Moore New Order Received: Yes - Notification Comment Comment: Dr. Moore called and given report on pt in tr. Pt c/o. VS WNL. Reactive NST. Orders recieved to collect and send UA, CBC, COMPLETE METABOLIC PANEL. To start IV and administer 500 ML bolus of lactated ringers Medical Screen Scoring (Post) - Cervical Exam Dilation: Exam Deferred Effacement: Exam Deferred Membranes: Intact - Uterine Contractions Frequency: N/A Duration: N/A Intensity: N/A - Maternal Vital Signs Maternal Temperature: N/A Maternal Blood Pressure: N/A Signs of Preeclampsia: N/A Maternal Respirations: N/A - Pain Assessment Pain Scale Used: Numeric (1 - 10) Pain Intensity: 0 - Maternal Trauma Maternal Trauma: N/A - Assessment - Baby A Heart Rate: 140 Heart Rate - NICHD Category: Category I (Normal) = 0 NST: Reactive Position: N/A Station: N/A - Total Score Total Score - Baby A: 0 Total Score - Baby B: 0 Total Score - Baby C: 0 - Post Treatment Level of Risk Post Treatment Level of Risk - Baby A: Low (0-5) Post Treatment Level of Risk - Baby B: Low (0-5) Post Treatment Level of Risk - Baby C: Low (0-5) Physician Notification (Post) - Notification Comment Comment: Dr. Moore at bedside discussing follow up with pt. Pt can be discharged with instructions to talk to Dr. Ackerman tomorrow when she goes in for her NST Disposition - Disposition Discharge Date: 12/13/18 Discharge Time: 20:32 I agree with the RN Medical Screening Exam: Yes Risk & Benefit of care provided described in d/c instruction: Yes Diagnosis: DEHYDRATION (This patient presented with approximately 4-5 days of nausea and vomiting and inability to keep anything down. Patient is approximately 33 weeks . She most recently was diagnosed with gestational diabetes but apparently has not gotten her supplies were begun treatment as of yet. Evaluation shows 4+ ketones. CBC and chem panel otherwise is fairly unremarkable. heart tones are reactive. Evaluation also shows positive marijuana screen. A she states that she's been using this entire and really has no intention of stopping. I did explain that we do not know the immediate or long-term effects on the fetus. We do know that it increases her risk of delivery. Patient is given IV hydration is feeling better. She is scheduled to come into the office tomorrow for a nonstress tests and I told her to discuss other treatment options for her nausea and vomiting which apparently have been long-term problems for her in this . At this time there is no evidence of maternal or compromise and therefore she will be discharged home follow up as scheduled tomorrow.)
== END 2018-12-13 20:37 | disposition home or self-care (01) ==
LOC: FBPOP 18:15
PROVIDERS: ATTEND Obstetrics & Gynecology
DX: O24.419 Gestational diabetes mellitus in pregnancy, unspecified control (principal); O21.1 Hyperemesis gravidarum with metabolic disturbance; O99.283 Endocrine, nutritional and metabolic diseases complicating pregnancy, third trimester; Z3A.33 33 weeks gestation of pregnancy
CPT/HCPCS: 59025; 80053; 80306; 81001; 85025; 87086; 96360; 99214

== ENCOUNTER 2018-12-31 13:46 | Outpatient (CLI) | payer OTHER ==
[2018-12-31] MEDS ORDERED: LACTATED RINGERS 1,000 ML IV SCH (15:15)
[2018-12-31 15:23] LABS: Appearance,Urine Turbid (Clear); Bacteria,Urine Rare /hpf; Bilirubin,Urine Negative (Negative); Blood,Urine Large (Negative); Color,Urine Dark Brown; Glucose,Urine (UA) Negative (Negative); Ketones,Urine 2+ (Negative); Leukocyte Esterase,Urine Moderate (Negative); Mucus,Urine Many /hpf; Nitrite,Urine Negative (Negative); Protein,Urine 2+ (Negative); RBC,Urine >182 /hpf (0-5); Specific Gravity,Urine 1.024 (1.001-1.035); Squamous Epithelial Cell,Urine 5 /hpf (0-4); WBC,Urine 40 /hpf (0-5)
[2018-12-31 15:42] VITALS: RESP 18; TEMP 97.6
[2018-12-31 15:46] VITALS: BP 108/72; PULSE 112
--- NOTE | 2019-01-01 22:09 | P.MSEPDOC ---
Presenting Problems - Arrival Data Date of Arrival on Unit: 12/31/18 Time of Arrival on Unit: 13:46 Mode of Transport: Wheelchair - Complaint OB-Reason for Admission/Chief Complaint: Vaginal Bleeding, Pain Comment: pt c/o vaginal bleeding and left groin area Medical History - Information : 5 Para: 4 Term: 4 : 0 Abortions: Spontaneous or Elective: 0 Number of Living Children: 4 - Gestational Age Gestational Age by PACO (wks/days): 35 Weeks and 3 Days - History Complications: Smoker Comment: THC use Review of Systems - Review of Systems Constitutional: No problems Breast: No problems ENT: No problems Cardiovascular: No problems Respiratory: No problems Gastrointestinal: No problems Genitourinary: No problems Musculoskeletal: No problems Neurological: No problems Skin: No problems Vital Signs - Temperature Temperature: 97.6 F Temperature Source: Temporal Artery Scan - Pulse Left Brachial Pulse Rate: 112 - Respirations Respiratory Rate: 18 Oxygen Delivery Method: Room Air - Blood Pressure Left Arm Blood Pressure: 108/72 Blood Pressure Mean: 84 Blood Pressure Source: Automatic Cuff Medical Screen Scoring (Pre) - Cervical Exam Dilation: 1-3 cm = 1 - Uterine Contractions Frequency: N/A Duration: N/A Intensity: N/A - Maternal Vital Signs Maternal Temperature: N/A Maternal Blood Pressure: Systolic >139 = 2 Signs of Preeclampsia: N/A Maternal Respirations: N/A - Maternal Trauma Maternal Trauma: N/A - Assessment - Baby A Baseline FHR: 130 Heart Rate - NICHD Category: Category I (Normal) = 0 NST: Reactive Position: N/A Station: N/A - Total Score - Baby A Total Score - Baby A: 3 - Total Score - Baby B Total Score - Baby B: 3 - Total Score - Baby C Total Score - Baby C: 3 - Level of Risk - Baby A Level of Risk - Baby A: Low (0-5) - Level of Risk - Baby B Level of Risk - Baby B: Low (0-5) - Level of Risk - Baby C Level of Risk - Baby C: Low (0-5) Physician Notification (Pre) - Physician Notified Physician Notified Date: 12/31/18 Physician Notified Time: 14:35 Physician/Practitioner Notifed:: Dr. Ackerman Spoke With: Dr. Ackerman New Order Received: Yes - Notification Comment Comment: obtain UA, cervical exam, and give LR 1 liter Medical Screen Scoring (Post) - Cervical Exam Dilation: 1-3 cm = 1 Effacement: More than 50% = 2 Membranes: Intact - Uterine Contractions Frequency: N/A Duration: N/A Intensity: N/A - Maternal Vital Signs Maternal Temperature: N/A Maternal Blood Pressure: N/A Signs of Preeclampsia: N/A Maternal Respirations: N/A - Pain Assessment Pain Location and Character: Left, Abdomen Pain Scale Used: Numeric (1 - 10) Pain Intensity: 4 Pain Description: *Acute Pain Frequency: Daily - Maternal Trauma Maternal Trauma: N/A - Assessment - Baby A Heart Rate: 130 Heart Rate - NICHD Category: Category I (Normal) = 0 NST: Reactive Position: N/A Station: N/A - Total Score Total Score - Baby A: 3 Total Score - Baby B: 3 Total Score - Baby C: 3 - Post Treatment Level of Risk Post Treatment Level of Risk - Baby A: Low (0-5) Post Treatment Level of Risk - Baby B: Low (0-5) Post Treatment Level of Risk - Baby C: Low (0-5) Physician Notification (Post) - Physician Notified Physician Notified Date: 12/31/18 Physician Notified Time: 15:40 Physician/Practitioner Notified:: Dr. Ackerman Spoke With: Dr. Ackerman New Order Received: Yes - Notification Comment Comment: Dr. Ackerman notified of pt's cervical exam, ua results, pain level better, will give pt rest of the liter bolus and then discharge home, follow up at next scheduled appt Disposition - Disposition Discharge Date: 12/31/18 Discharge Time: 17:10 I agree with the RN Medical Screening Exam: Yes Risk & Benefit of care provided described in d/c instruction: Yes Diagnosis: FALSE LABOR AT OR AFTER 37 COMPLETED WEEKS OF GESTATION
== END 2018-12-31 17:10 | disposition home or self-care (01) ==
LOC: FBPOP 13:46
PROVIDERS: ATTEND Obstetrics & Gynecology
DX: O47.03 False labor before 37 completed weeks of gestation, third trimester (principal); O99.333 Smoking (tobacco) complicating pregnancy, third trimester; F17.200 Nicotine dependence, unspecified, uncomplicated; Z3A.35 35 weeks gestation of pregnancy
CPT/HCPCS: 59025; 96360; 81001; 87086; G0463; 99213

== ENCOUNTER 2019-01-09 15:28 | Outpatient (CLI) | payer OTHER | END 2019-01-09 16:00 | disposition home or self-care (01) | LOC: FBPOP 15:28 | PROVIDERS: ATTEND Obstetrics & Gynecology | DX: O24.419 Gestational diabetes mellitus in pregnancy, unspecified control (principal); Z3A.36 36 weeks gestation of pregnancy | CPT/HCPCS: 59025 ==

== ENCOUNTER 2019-01-26 06:15 | Inpatient (IN) | payer OTHER ==
--- NOTE | 2019-01-25 16:41 | P.HPOB ---
History of Present Illness H&P Date: 01/25/19 Chief Complaint: [facility] BSO 38 year old presents for total laparoscopic hysterectomy, bilateral salpingo-oopherectomy with da carly and diagnostic cystoscopy. Review of Systems All systems: negative Constitutional: Denies chills, Denies fever Eyes: denies blurred vision, denies pain Ears, nose, mouth and throat: Denies headache, Denies sore throat Cardiovascular: Denies chest pain, Denies shortness of breath Respiratory: Denies cough Gastrointestinal: Denies abdominal pain, Denies diarrhea, Denies nausea, Denies vomiting Genitourinary: Denies dysuria, Denies hematuria Musculoskeletal: Denies myalgias Integumentary: Denies pruritus, Denies rash Neurological: Denies numbness, Denies weakness Psychiatric: Denies anxiety, Denies depression Endocrine: Denies fatigue, Denies weight change Past Medical History Past Medical History: Asthma, Fibromyalgia Additional Past Medical History / Comment(s): chronic pain, herniated discs in lower back and neck, IBS, breast cancer History of Any Multi-Drug Resistant Organisms: None Reported Past Surgical History: Breast Surgery (lumpectomy), Section, Cholecystectomy Additional Past Surgical History / Comment(s): laminectomy 04/2015, 11/2017 - [facility] Past Anesthesia/Blood Transfusion Reactions: No Reported Reaction Additional Past Anesthesia/Blood Transfusion Reaction / Comment(s): mother had hard time waking up with anesthesia Smoking Status: Current every day smoker - Past Family History Mother Family Medical History: Cancer Additional Family Medical History / Comment(s): knows has cardiac probs unsure of dx,stomach CA Medications and Allergies Home Medications Medication Instructions Recorded Confirmed Type diphenhydrAMINE [Benadryl] 25 mg PO HS PRN 06/12/18 12/31/18 History Insulin Lispro [humaLOG] 15 units SQ HS 12/31/18 12/31/18 History Pnv No.95/Ferrous Fum/Folic AC 1 tab PO DAILY 12/31/18 12/31/18 History [ Multivitamin Tablet] metFORMIN HCL [Glucophage] 500 mg PO 01/09/19 History Allergies Allergy/AdvReac Type Severity Reaction Status Date / Time No Known Allergies Allergy Verified 12/31/18 14:30 Exam Osteopathic Statement: *. No significant issues noted on an osteopathic structural exam other than those noted in the History and Physical/Consult. Heart: RRR Lungs: CTAB ABdomen: soft, nontender Extremeties: neg erik's Assessment and Plan (1) Breast cancer Narrative/Plan: ER/AK + Status: Acute Code(s): C50.919 - MALIGNANT NEOPLASM OF UNSP SITE OF UNSPECIFIED FEMALE BREAST SNOMED Code(s): 949560739 Plan: 1. total laparoscopic hysterectomy bilateral salping-oopherectomy with da carly and diagnostic cystoscopy
[2019-01-26] MEDS ORDERED: CARBOPROST TROMETHAMINE 250 MCG/ML 1 ML AMP IM PRN (10:34)
[2019-01-26] MEDS ORDERED: LIDOCAINE 0.5% (PF) 5 MG/ML (50 ML SDV) SQ PRN (10:34)
[2019-01-26] MEDS ORDERED: OXYTOCIN 10 UNIT/ML 1 ML VIAL IM PRN (10:34)
[2019-01-26] MEDS ORDERED: METHYLERGONOVINE 0.2 MG/ML 1 ML AMP IM PRN (10:34)
[2019-01-26] MEDS ORDERED: AMPICILLIN 2,000 MG in SODIUM CHLORIDE 0.9% 100 ML IVPB STA (10:34)
[2019-01-26] MEDS ORDERED: diphenhydrAMINE 25 MG CAP PO PRN (10:34)
[2019-01-26] MEDS ORDERED: OXYTOCIN 30 UNITS/500 ML NS 30 UNIT in SALINE 1 500ML.BAG IV SCH (10:34)
[2019-01-26] MEDS ORDERED: TERBUTALINE 1 MG/ML VIAL SQ PRN (10:34)
[2019-01-26 10:59] VITALS: BMI 39.9
[2019-01-26] MEDS: LACTATED RINGERS 1,000 ML IV SCH (11:06)
[2019-01-26 11:15] LABS: Basophils # (A) 0.1 k/uL (0-0.2); Basophils % (A) 1 %; Eosinophils # (A) 0.1 k/uL (0-0.7); Eosinophils % (A) 1 %; HCT 33.5 % (34.0-46.0); HGB 11.4 gm/dL (11.4-16.0); Lymphocytes # (A) 1.5 k/uL (1.0-4.8); Lymphocytes % (A) 16 %; MCH 27.9 pg (25.0-35.0); MCHC 34.1 g/dL (31.0-37.0); MCV 81.8 fL (80.0-100.0); Mean Platelet Volume 8.3; Monocytes # (A) 0.4 k/uL (0-1.0); Monocytes % (A) 4 %; Neutrophils # (A) 7.3 k/uL (1.3-7.7); Neutrophils % (A) 77 %; Platelet Count 193 k/uL (150-450); RBC 4.09 m/uL (3.80-5.40); RDW 14.5 % (11.5-15.5); WBC 9.6 k/uL (3.8-10.6)
[2019-01-26 11:22] LABS: Glucose,Whole Blood 92 mg/dL (75-99)
[2019-01-26 11:24] LABS: Amphetamine Screen,Urine Not Detected (NotDetected); Barbiturate Screen,Urine Not Detected (NotDetected); Benzodiazepines Screen,Urine Not Detected (NotDetected); Cocaine Screen,Urine Not Detected (NotDetected); Methadone Screen, Urine Not Detected (NotDetected); Opiate Screen,Urine Not Detected (NotDetected); Oxycodone Screen, Urine Not Detected (NotDetected); Phencyclidine Screen,Urine Not Detected (NotDetected); Tricyclic Antidepressant,Urine Not Detected (NotDetected); Urn Cannabinoid Scrn Detected (NotDetected)
[2019-01-26] MEDS ORDERED: BUTORPHANOL 1 MG/ML 1 ML VIAL IV PRN (15:27)
[2019-01-26] MEDS: AMPICILLIN 1,000 MG in SODIUM CHLORIDE 0.9% 50 ML IVPB SCH ×2 (15:35→19:21)
--- NOTE | 2019-01-26 17:16 | P.HPOB ---
History of Present Illness H&P Date: 01/26/19 Chief Complaint: induction of labor 38 year old presents at 39 weeks 1 day for induction of labor. Her cervix is 2/80/-2. She is aurora irregularly. heart tones 130 with moderate variability and reactive. SHe has gestational diabetes A2 on metformin and insu shamir at night. Review of Systems All systems: negative Constitutional: Denies chills, Denies fever Eyes: denies blurred vision, denies pain Ears, nose, mouth and throat: Denies headache, Denies sore throat Cardiovascular: Denies chest pain, Denies shortness of breath Respiratory: Denies cough Gastrointestinal: Denies abdominal pain, Denies diarrhea, Denies nausea, Denies vomiting Genitourinary: Denies dysuria, Denies hematuria Musculoskeletal: Denies myalgias Integumentary: Denies pruritus, Denies rash Neurological: Denies numbness, Denies weakness Psychiatric: Denies anxiety, Denies depression Endocrine: Denies fatigue, Denies weight change Past Medical History Past Medical History: Asthma, Fibromyalgia, GERD/Reflux Additional Past Medical History / Comment(s): chronic pain, herniated discs in lower back and neck, IBS. OB history: she has had 2 vaginal deliveries, one c- section and one SAB. History of Any Multi-Drug Resistant Organisms: None Reported Past Surgical History: Section, Cholecystectomy Additional Past Surgical History / Comment(s): laminectomy 04/2015, 11/2017 - [facility] Past Anesthesia/Blood Transfusion Reactions: No Reported Reaction Additional Past Anesthesia/Blood Transfusion Reaction / Comment(s): mother had hard time waking up with anesthesia Past Psychological History: Anxiety, Depression, PTSD Smoking Status: Current every day smoker Past Alcohol Use History: None Reported Additional Past Alcohol Use History / Comment(s): started smoking at age 16 1ppd Past Drug Use History: None Reported, Marijuana Additional Drug Use History / Comment(s): medical marijuana daily - Past Family History Mother Family Medical History: Cancer Additional Family Medical History / Comment(s): knows has cardiac probs unsure of dx,stomach CA Medications and Allergies Home Medications Medication Instructions Recorded Confirmed Type diphenhydrAMINE [Benadryl] 25 mg PO HS PRN 06/12/18 01/26/19 History Insulin Lispro [humaLOG] 15 units SQ HS 12/31/18 01/26/19 History Pnv No.95/Ferrous Fum/Folic AC 1 tab PO DAILY 12/31/18 01/26/19 History [ Multivitamin Tablet] metFORMIN HCL [Glucophage] 500 mg PO DAILY 01/09/19 01/26/19 History Allergies Allergy/AdvReac Type Severity Reaction Status Date / Time No Known Allergies Allergy Verified 12/31/18 14:30 Exam Osteopathic Statement: *. No significant issues noted on an osteopathic structural exam other than those noted in the History and Physical/Consult. Vital Signs Temp Pulse Resp BP Pulse Ox 01/26/19 10:30 96.4 F L 87 16 114/78 97 Intake and Output 01/26/19 01/26/19 01/26/19 06:59 14:59 22:59 Other: Weight 115.666 kg Heart: RRR Lungs: CTAB Abdomen: soft, nontender Extremeties: neg erik's Results Result Diagrams: 01/26/19 11:00 Abnormal Lab Results - Last 24 Hours (Table) 01/26/19 01/26/19 Range/Units 10:40 11:00 Hct 33.5 L (34.0-46.0) % U Marijuana (THC) Screen Detected H (NotDetected) Assessment and Plan (1) Normal labor Current Visit: Yes Status: Acute Code(s): O80 - ENCOUNTER FOR FULL-TERM UNCOMPLICATED DELIVERY; Z37.9 - OUTCOME OF DELIVERY, UNSPECIFIED SNOMED Code(s): 53068123 (2) Gestational diabetes mellitus, class A2 Current Visit: Yes Status: Acute Code(s): O24.419 - GESTATIONAL DIABETES MELLITUS IN , UNSP CONTROL SNOMED Code(s): 76939254 (3) Previous section Current Visit: Yes Status: Acute Code(s): Z98.891 - HISTORY OF UTERINE SCAR FROM PREVIOUS SURGERY SNOMED Code(s): 173712420 Plan: 1. induction of labor with amniotomy and pitocin 2. anticipate normal vaginal delivery
[2019-01-26] MEDS ORDERED: ROPIVACAINE 100 MG, fentaNYL (PF) 200 MCG in SODIUM CHLORIDE 0.9% 76 ML EPIDURAL ONE (17:27)
[2019-01-26 19:41] LABS: Glucose,Whole Blood 88 mg/dL (75-99)
[2019-01-26 20:30] LABS: Hemoglobin A1C 4.7 % (4.0-6.0)
[2019-01-27] MEDS ORDERED: diphenhydrAMINE 25 MG CAP PO PRN (08:57)
[2019-01-27] MEDS ORDERED: diphenhydrAMINE 50 MG CAP PO PRN (08:57)
[2019-01-27] MEDS ORDERED: WITCH HAZEL 1 EACH MED..PAD TOPICAL PRN (08:57)
[2019-01-27] MEDS ORDERED: diphenhydrAMINE 50 MG/ML 1 ML VIAL IVP PRN ×2 (08:57)
[2019-01-27] MEDS ORDERED: IBUPROFEN 600 MG TAB PO PRN (08:57)
[2019-01-27] MEDS ORDERED: HYDROCORTISONE 2.5% RECTAL CREAM 30 GM TUBE RECTAL PRN (08:57)
[2019-01-27] MEDS ORDERED: LANOLIN CREAM 5 GM TUBE TOPICAL PRN (08:57)
[2019-01-27] MEDS ORDERED: ZOLPIDEM 5 MG TAB PO PRN (08:57)
[2019-01-27] MEDS ORDERED: ACETAMINOPHEN TAB 325 MG TAB PO PRN (08:57)
[2019-01-27] MEDS ORDERED: SIMETHICONE 80 MG CHEWABLE PO PRN (08:57)
[2019-01-27] MEDS ORDERED: BENZOCAINE/MENTHOL SPRAY 1 GM/SPRAY AEROSOL TOPICAL PRN (08:57)
[2019-01-27] MEDS ORDERED: OXYTOCIN 20 UNITS/1000 ML NS 1,000 ML IV SCH (09:00)
--- NOTE | 2019-01-27 12:35 | P.PROBDLV ---
Vaginal Delivery Note - . Vaginal Delivery Note: 38 year old presents at 39 weeks 1 day for induction of labor. Her cervix is 2/80/-2. She is aurora irregularly. heart tones 130 with moderate variability and reactive. Pitocin was started around 10:30 AM. Amniotomy was performed at 12:30 PM. Clear fluid noted. When she was 5 cm she got an epidural and was comfortable. Her cervix was completely dilated at 2238, she pushed, and delivered a viable female infant over intact perineum under epidural anesthesia at 2241. Head delivered OA, anterior shoulder delivered gentle downward guidance followed by posterior shoulder and rest of body. Nose mouth bulb suctioned, cord clamped and cut, infant placed mother's abdomen. Apgars 8, 9, weight 7 lbs. 2 oz. Placenta delivered spontaneously, intact with three- vessel cord at 2243. Vagina, cervix, perineum inspected. First-degree midline and a right labial laceration repaired with 3-0 Vicryl. Estimated blood loss 200 mL. Mother and baby in stable condition.
--- NOTE | 2019-01-27 12:36 | P.DS ---
Providers Date of admission: 01/26/19 10:23 Expected date of discharge: 01/27/19 Attending physician: Kendy Ackerman Primary care physician: Stated None - Discharge Diagnosis(es) (1) Normal labor Current Visit: Yes Status: Resolved (2) Gestational diabetes mellitus, class A2 Current Visit: Yes Status: Resolved (3) Previous section Current Visit: Yes Status: Resolved (4) Normal vagina Current Visit: Yes Status: Acute Hospital Course: Patient presented for induction of labor. She underwent a normal vaginal delivery. Her course on completely. She'll be discharged home day #1 in stable condition to follow-up with me in 6 weeks. Plan - Discharge Summary New Discharge Prescriptions: No Action diphenhydrAMINE [Benadryl] 25 mg PO HS PRN PRN Reason: Insomnia Pnv No.95/Ferrous Fum/Folic AC [ Multivitamin Tablet] 1 tab PO DAILY Insulin Lispro [humaLOG] 15 units SQ HS metFORMIN HCL [Glucophage] 500 mg PO DAILY Discharge Medication List diphenhydrAMINE [Benadryl] 25 mg PO HS PRN 06/12/18 [History] Insulin Lispro [humaLOG] 15 units SQ HS 12/31/18 [History] Pnv No.95/Ferrous Fum/Folic AC [ Multivitamin Tablet] 1 tab PO DAILY 12/31/18 [History] metFORMIN HCL [Glucophage] 500 mg PO DAILY 01/09/19 [History]
[2019-01-28] MEDS: SENNOSIDES-DOCUSATE SODIUM 1 EACH TAB PO SCH ×2 (03:46→08:27)
[2019-01-28] MEDS: LACTATED RINGERS 1,000 ML IV SCH (03:46)
[2019-01-28] MEDS: AMPICILLIN 1,000 MG in SODIUM CHLORIDE 0.9% 50 ML IVPB SCH (03:47)
--- NOTE | 2019-01-28 07:16 | P.PNOBGVD ---
Subjective - Subjective Patient reports: Reports appetite normal, Reports voiding normally, Reports pain well controlled, Reports ambulating normally : doing well Objective - Latest Vital Signs Latest vital signs: Vital Signs Temp Pulse Resp BP Pulse Ox 01/28/19 00:00 98 F 73 15 107/56 01/27/19 21:29 97.6 F 75 18 132/79 100 01/27/19 16:00 98 F 73 16 130/79 01/27/19 12:00 98.3 F 71 15 127/77 01/27/19 08:00 98.3 F 62 15 112/55 - Exam Lungs: bilateral: normal Chest: Normal S1, Normal S2 Extremities: Present: normal Abdomen: Present: normal appearance, soft Uterus: Present: normal, firm Assessment and Plan Assessment: day #2. Patient had initially wanted to be discharged home yesterday however due to feeding difficulties with her baby she stayed an extra day. Patient be discharged home today to follow up with Dr. Ackerman as previously discussed. She is feeling well without complaints today. fast food services manager has already been contacted in regards the patient's substance abuse problem
[2019-01-28 08:27] VITALS: RESP 16; TEMP 98.6
[2019-01-28 16:06] VITALS: BP 118/62; PULSE 78
== END 2019-01-28 21:05 | disposition home or self-care (01) | DRG 807 ==
LOC: 4FBP 10:23
PROVIDERS: ADMIT Obstetrics & Gynecology; ATTEND Obstetrics & Gynecology
PROC: 10E0XZZ Delivery of Products of Conception, External Approach (ICD-10-PCS; principal; 2019-01-26)
PROC: 0HQ9XZZ Repair Perineum Skin, External Approach (ICD-10-PCS; 2019-01-26)
PROC: 3E033VJ Introduction of Other Hormone into Peripheral Vein, Percutaneous Approach (ICD-10-PCS; 2019-01-26)
PROC: 10907ZC Drainage of Amniotic Fluid, Therapeutic from Products of Conception, Via Natural or Artificial Opening (ICD-10-PCS; 2019-01-26)
PROC: 00HU33Z Insertion of Infusion Device into Spinal Canal, Percutaneous Approach (ICD-10-PCS; 2019-01-26)
PROC: 3E0R3BZ Introduction of Anesthetic Agent into Spinal Canal, Percutaneous Approach (ICD-10-PCS; 2019-01-26)
DX: O24.424 Gestational diabetes mellitus in childbirth, insulin controlled (principal); Z37.0 Single live birth; O34.211 Maternal care for low transverse scar from previous cesarean delivery; O70.0 First degree perineal laceration during delivery; Z3A.39 39 weeks gestation of pregnancy; O99.62 Diseases of the digestive system complicating childbirth; K21.9 Gastro-esophageal reflux disease without esophagitis; K58.9 Irritable bowel syndrome, unspecified; O99.89 Other specified diseases and conditions complicating pregnancy, childbirth and the puerperium; M79.7 Fibromyalgia; G89.29 Other chronic pain; M54.5 Low back pain; O99.52 Diseases of the respiratory system complicating childbirth; J45.909 Unspecified asthma, uncomplicated; O99.334 Smoking (tobacco) complicating childbirth; N85.8 Other specified noninflammatory disorders of uterus; F17.210 Nicotine dependence, cigarettes, uncomplicated; Z79.899 Other long term (current) drug therapy; Z90.49 Acquired absence of other specified parts of digestive tract; Z86.59 Personal history of other mental and behavioral disorders; Z80.0 Family history of malignant neoplasm of digestive organs; Z82.49 Family history of ischemic heart disease and other diseases of the circulatory system
CPT/HCPCS: 80306; 83036; 85025; 86850; 86900; 86901

== ENCOUNTER → 2019-04-07 | Outpatient (CLI) | payer OTHER ==
[2019-04-07 15:31] LABS: Basophils # (A) 0.2 k/uL (0-0.2); Basophils % (A) 2 %; Eosinophils # (A) 0.1 k/uL (0-0.7); Eosinophils % (A) 1 %; HGB 12.2 gm/dL (11.4-16.0); Lymphocytes # (A) 1.5 k/uL (1.0-4.8); Lymphocytes % (A) 18 %; MCHC 32.1 g/dL (31.0-37.0); Mean Platelet Volume 7.5; Monocytes # (A) 0.2 k/uL (0-1.0); Monocytes % (A) 3 %; Neutrophils % (A) 75 %; Platelet Count 280 k/uL (150-450); RBC 4.88 m/uL (3.80-5.40); RDW 14.2 % (11.5-15.5); WBC 8.1 k/uL (3.8-10.6)
== END | disposition home or self-care (01) ==
LOC: LABPAT 13:58
PROVIDERS: ATTEND Obstetrics & Gynecology
DX: Z01.812 Encounter for preprocedural laboratory examination (principal)
CPT/HCPCS: 85025

== ENCOUNTER 2019-04-10 06:41 | Day surgery (SDC) | payer OTHER ==
[2019-04-06 12:03] VITALS: BMI 37.5
[~2019-04-10 06:41] MED LIST changes: +DEXAMETHASONE SOD PHOSPHATE 10 MG/ML 1 ML VIAL IV ONE; +HYDROmorphone 0.5 MG/0.5 ML SYRINGE IVP PRN; -LACTATED RINGERS 1,000 ML IV ONE; +LACTATED RINGERS 1,000 ML IV SCH; +MIDAZOLAM 2 MG/2 ML VIAL IV PRN; -MORPHINE SULFATE 10 MG/ML SYRINGE IV PRN; +ONDANSETRON 4 MG/2 ML VIAL IVP ONE; -ONDANSETRON 4 MG/2 ML VIAL IVP PRN; +SCOPOLAMINE 1.5MG/72HR PATCH TRANSDERM ONE
--- NOTE | 2019-04-10 07:51 | P.HPOB ---
History of Present Illness H&P Date: 04/10/19 Chief Complaint: Family planning 38-year-old presents for laparoscopic tubal ligation. Review of Systems All systems: negative Constitutional: Denies chills, Denies fever Eyes: denies blurred vision, denies pain Ears, nose, mouth and throat: Denies headache, Denies sore throat Cardiovascular: Denies chest pain, Denies shortness of breath Respiratory: Denies cough Gastrointestinal: Denies abdominal pain, Denies diarrhea, Denies nausea, Denies vomiting Genitourinary: Denies dysuria, Denies hematuria Musculoskeletal: Denies myalgias Integumentary: Denies pruritus, Denies rash Neurological: Denies numbness, Denies weakness Psychiatric: Denies anxiety, Denies depression Endocrine: Denies fatigue, Denies weight change Past Medical History Past Medical History: Asthma, Diabetes Mellitus, Fibromyalgia, GERD/Reflux Additional Past Medical History / Comment(s): Hx Gestational Diabetes X1 . Chronic pain, herniated discs in lower back and neck. IBS. History of Any Multi-Drug Resistant Organisms: None Reported Past Surgical History: Back Surgery, Section, Cholecystectomy Additional Past Surgical History / Comment(s): Laminectomy X2. Past Anesthesia/Blood Transfusion Reactions: Family History of Problems w/ Anesthesia Additional Past Anesthesia/Blood Transfusion Reaction / Comment(s): Mother had hard time waking up with anesthesia. Past Psychological History: Anxiety, Depression, PTSD Smoking Status: Former smoker Past Alcohol Use History: Rare Additional Past Alcohol Use History / Comment(s): Started smoking at age 16 1 PPD, quit May 2018. Past Drug Use History: Marijuana Additional Drug Use History / Comment(s): Medical Marijuana use daily. Aware no use 24 hrs prior to procedure. - Past Family History Mother Family Medical History: Cancer Additional Family Medical History / Comment(s): Cardiac problemss unsure of dx, stomach CA. Medications and Allergies Home Medications Medication Instructions Recorded Confirmed Type Naproxen 500 mg PO BID 04/06/19 04/10/19 History Allergies Allergy/AdvReac Type Severity Reaction Status Date / Time No Known Allergies Allergy Verified 04/10/19 06:54 Exam Osteopathic Statement: *. No significant issues noted on an osteopathic structural exam other than those noted in the History and Physical/Consult. Vital Signs Temp Pulse Resp BP Pulse Ox 04/10/19 07:06 97.6 F 100 20 125/60 96 Intake and Output 04/09/19 04/10/19 04/10/19 22:59 06:59 14:59 Other: Weight 111.9 kg Heart: Regular rate and rhythm Lungs: Clear to auscultation bilaterally Abdomen: Soft, nontender Extremities: Negative Homans sign Assessment and Plan (1) Family planning Current Visit: Yes Status: Acute Code(s): Z30.09 - ENCOUNTER FOR OTH GENERAL CNSL AND ADVICE ON CONTRACEPTION SNOMED Code(s): 857805493 Plan: 1. Laparoscopic tubal ligation.
[2019-04-10] MEDS ORDERED: PROPOFOL 10 MG/ML 20 ML VIAL IV ONE (07:55)
[2019-04-10] MEDS ORDERED: KETOROLAC 30 MG/ML 1 ML VIAL ONE (07:55)
[2019-04-10] MEDS ORDERED: NEOSTIGMINE 1 MG/ML 10 ML VIAL ONE (07:55)
[2019-04-10] MEDS ORDERED: fentaNYL (PF) 50 MCG/ML 2 ML AMP ONE (07:55)
[2019-04-10] MEDS ORDERED: MIDAZOLAM 2 MG/2 ML VIAL ONE (07:55)
[2019-04-10] MEDS ORDERED: GLYCOPYRROLATE 0.2 MG/ML 2 ML VIAL ONE (07:55)
[2019-04-10] MEDS ORDERED: SUCCINYLCHOLINE CHLORIDE 100 MG/5 ML SYR IV ONE (07:55)
[2019-04-10] MEDS ORDERED: LIDOCAINE 1% INJ 10MG/ML (20 ML MDV) ONE (07:55)
[2019-04-10] MEDS ORDERED: ROCURONIUM BROMIDE 10 MG/ML 10 ML VIAL IV ONE (07:55)
[2019-04-10] MEDS ORDERED: BUPIVACAINE (PF) 0.25% 30 ML VIAL SQ ONE (08:18)
[2019-04-10 08:50] VITALS: TEMP 97
[2019-04-10 09:02] VITALS: RESP 16
--- NOTE | 2019-04-10 09:05 | P.OP ---
Date of Procedure: 04/10/19 Preoperative Diagnosis: 1. Family planning Postoperative Diagnosis: 1. Family planning Procedure(s) Performed: Laparoscopic tubal ligation Anesthesia: RAYNA Surgeon: Kendy Ackerman Estimated Blood Loss (ml): 2 IV fluids (ml): 500 Urine output (ml): 15 Pathology: none sent Condition: stable Disposition: PACU Operative Findings: Normal uterus, tubes, ovaries. Description of Procedure: Patient was taken to the operating room where general anesthesia was obtained without difficulty. She was prepped and draped in normal sterile fashion in the dorsal lithotomy position, legs placed in the Nitesh stirrups. Bladder drained of all urine. [place] speculum placed in the vagina and the anterior lip the cervix was grasped with single-tooth tenaculum. The uterus is sounded to 10 cm and the kroner manipulator was placed. Attention was then turned to the abdomen and gloves were changed. A 10 mm infraumbilical incision was made the scalpel and 10 mm optical trocar was placed under direct visualization. A 5 mm suprapubic Incision was made and a 5 mm optical trocar was placed under direct visualization. Survey of the pelvis revealed normal uterus tubes and ovaries. The left fallopian tube was grasped with a Kleppinger and fulgurated 2-3 cm on this side in the ampullar portion. The right fallopian tube was grasped with a Kleppinger and fulgurated 2-3 cm in the ampullar portion. All instruments were then removed from the abdomen and vagina. The 10 mm infraumbilical incision was closed with 0 Vicryl and the fascial layer and then 4-0 Vicryl in a subcuticular fashion. The 5 mm incision was closed with 4-0 Vicryl in a subcuticular fashion. Patient tolerated procedure well, sponge and instrument counts correct 2 and she was taken to recovery room in stable condition.
[2019-04-10 10:21] VITALS: BP 110/57; PULSE 78
== END 2019-04-10 10:53 | disposition home or self-care (01) ==
LOC: OR 06:41
PROVIDERS: ATTEND Obstetrics & Gynecology
DX: Z30.2 Encounter for sterilization (principal); J45.909 Unspecified asthma, uncomplicated; M79.7 Fibromyalgia; F41.9 Anxiety disorder, unspecified; F32.9 Major depressive disorder, single episode, unspecified; F43.10 Post-traumatic stress disorder, unspecified; K21.9 Gastro-esophageal reflux disease without esophagitis; G89.29 Other chronic pain; E11.9 Type 2 diabetes mellitus without complications; K58.9 Irritable bowel syndrome, unspecified; E66.01 Morbid (severe) obesity due to excess calories; Z87.891 Personal history of nicotine dependence; Z86.32 Personal history of gestational diabetes; Z90.49 Acquired absence of other specified parts of digestive tract; Z79.1 Long term (current) use of non-steroidal anti-inflammatories (NSAID); Z98.890 Other specified postprocedural states; Z68.37 Body mass index [BMI] 37.0-37.9, adult; Z80.0 Family history of malignant neoplasm of digestive organs
CPT/HCPCS: 81025; 58670; J2250; J1100; J2710; J2405; J2001; J3010; J1885; J0330; J2704

== ENCOUNTER → 2020-01-12 | Outpatient (CLI) | payer OTHER ==
--- NOTE | 2020-01-12 14:20 | MR ---
EXAMINATION TYPE: MR lumbar spine wo/w con DATE OF EXAM: 01/12/2020 12:41 PM COMPARISON: 10/07/2017 HISTORY: Acute bilateral low back pain with CONTRAST: The patient was injected with 11.5 mL intravenous Gadavist gadolinium contrast. Multiplanar, MultiSpin echo imaging of the lumbar spine was performed. L1-L2: Normal disc appearance without desiccation. No herniation, protrusion or disc bulging. No ca nal stenosis is present. Foramina are patent bilaterally. L2-L3: Normal disc appearance without desiccation. No herniation, protrusion or disc bulging. No ca nal stenosis is present. Foramina are patent bilaterally. L3-L4: Moderate disc desiccation. Subligamentous disc herniation paracentrally and to the left unchan ged from prior study. There may be intermittent left lateral recess stenosis. Mild left foraminal enc roachment. No evidence for central stenosis. L4-L5: Previously noted large extruded disc herniation is no longer visualized. Laminectomy change id entified. No pathologic enhancement to suggest recurrent or residual disease. Moderate disc desiccati on with residual right paracentral disc bulge. No central stenosis or foraminal encroachment. Degener ative endplate marrow change. L5-S1: Postoperative changes noted of left hemilaminectomy. No evidence for recurrent or residual dis ease. Moderate disc desiccation. Left paracentral disc bulge. Lumbar segments are intact. No paraspinal masses are identified. Conus medullaris has a normal appe arance. IMPRESSION: 1. Multilevel degenerative disc disease. 2. Interval surgical intervention at the site of large extruded disc herniation at L4-5. No evidence for recurrent or residual disease. Disc bulging as noted above. Subligamentous disc herniation L3-4.
== END | disposition home or self-care (01) ==
LOC: RADMRIMAIN 11:58
PROVIDERS: ATTEND Psychiatry & Neurology Neurology
DX: M51.26 Other intervertebral disc displacement, lumbar region (principal); M51.27 Other intervertebral disc displacement, lumbosacral region; M51.36 Other intervertebral disc degeneration, lumbar region
CPT/HCPCS: 72158; A9585

== ENCOUNTER → 2021-03-03 | Outpatient (CLI) | payer OTHER ==
--- NOTE | 2021-03-05 08:01 | MM ---
Reason for exam: screening (asymptomatic). Last mammogram was performed 4 years and 11 months ago. History: Took hormonal contraceptives for 1 year 6 months beginning at age 33. Physical Findings: A clinical breast exam by your physician is recommended on an annual basis and results should be correlated with mammographic findings. MG Screening Mammo w CAD Bilateral CC and MLO view(s) were taken. Prior study comparison: April 01, 2016, bilateral MG screening mammo w CAD. There are scattered fibroglandular densities. Benign round calcifications are unchanged. Stable anterior focal asymmetric density 12 o'clock right breast. No significant changes when compared with prior studies. ASSESSMENT: Benign, BI-RAD 2 RECOMMENDATION: Routine screening mammogram of both breasts in 1 year.
== END | disposition home or self-care (01) ==
LOC: RADMAMWWP 13:06
PROVIDERS: ATTEND Obstetrics & Gynecology
DX: Z12.31 Encounter for screening mammogram for malignant neoplasm of breast (principal)
CPT/HCPCS: 77067

== ENCOUNTER → 2021-05-22 | Outpatient (CLI) | payer OTHER ==
--- NOTE | 2021-05-23 14:21 | MR ---
EXAMINATION TYPE: MR lumbar spine wo/w con DATE OF EXAM: 05/22/2021 COMPARISON: HISTORY: LBP, BLE radiculopathy, worse on the left. Hx surgery, most recent 2018. TECHNIQUE: Multiplanar, multisequence images of the lumbar spine were acquired without and with 12 mL intravenou s Gadavist gadolinium contrast. L1-L2: Normal disc appearance without desiccation. No herniation, protrusion or disc bulging. No ca nal stenosis is present. Foramina are patent bilaterally. L2-L3: Normal disc appearance without desiccation. No herniation, protrusion or disc bulging. No ca nal stenosis is present. Foramina are patent bilaterally. L3-L4: Posterior broad-based disc bulge causes anterior mass effect on the thecal sac. Mass effect is somewhat eccentric towards the left causing anterolateral mass effect on the thecal sac, circumferen tial disc bulge does not compromise the foramen however. There may be some granulation tissue at the posterior aspect of the disc, some enhancement is noted L4-L5: There is a left posterior paracentral disc herniation causing minimal anterior mass effect on the thecal sac, possibly contact with the proximal L5 nerve root. Circumferential extension of endpla te disc complex is noted but without appreciable foraminal encroachment. Some extension of disc mater ial present posterior to the superior endplate of L5 is suspected, sagittal image #7 of the postcontr ast images, sagittal image #8 of series 301 and 401, some enhancement is present at the posterior asp ect of the disc material suggesting some local granulation tissue L5-S1: Left posterior paracentral disc herniation present towards the left causing anterior mass effe ct on the thecal sac, possibly contact with the left S1 nerve root. No significant foraminal encroach ment. There may be some local granulation tissue. Posterior aspect of the disc herniation, there is s ome focal enhancement. Postop change is noted status post left laminectomy Lumbar segments are intact. No paraspinal masses are identified. Conus medullaris has a normal appe arance. Lumbar vertebral bodies show preserved height and alignment. Loss of disc height signal is gr eatest at L4-5, is endplate discogenic marrow signal change. No significant spinal stenosis. No other significant abnormal enhancement following contrast administration. IMPRESSION: Multilevel degenerative disc disease, disc herniations as described.
== END | disposition home or self-care (01) ==
LOC: RADMRIMAIN 16:15
PROVIDERS: ATTEND Psychiatry & Neurology Neurology
DX: M51.16 Intervertebral disc disorders with radiculopathy, lumbar region (principal)
CPT/HCPCS: 72158; A9585

== ENCOUNTER → 2024-08-11 | Day surgery (SDC) | payer OTHER ==
[~2024-08-11] MED LIST changes: -DEXAMETHASONE SOD PHOSPHATE 10 MG/ML 1 ML VIAL IV ONE; -HYDROmorphone 0.5 MG/0.5 ML SYRINGE IVP PRN; +LIDOCAINE 2% (PF) 20 MG/ML 5 ML VIAL ONE; -MIDAZOLAM 2 MG/2 ML VIAL IV PRN; -ONDANSETRON 4 MG/2 ML VIAL IVP ONE; +PROPOFOL 10 MG/ML 20 ML VIAL IV ONE; -Pre Op ABX Message 1 EACH MISC MISCELLANE ONE; -SCOPOLAMINE 1.5MG/72HR PATCH TRANSDERM ONE; +fentaNYL (PF) 50 MCG/ML 2 ML AMP ONE
[2024-08-11] MEDS: IV FLUID CONTINUATION 500 ML IV ONE (07:40)
[2024-08-11 07:44] VITALS: TEMP 96.8
[2024-08-11 08:07] LABS: Glucose,Whole Blood 124 mg/dL (70-110)
--- NOTE | 2024-08-11 08:32 | P.PCN ---
Date of Procedure: 08/11/24 Procedure(s) Performed: Brief history: Patient is a pleasant 43-year-old white female scheduled for an elective upper endoscopy as well as colonoscopy as a part of evaluation of GERD, abdominal pain and change in bowel habits for the last several months duration Procedure performed: Esophagogastroduodenoscopy with biopsy Colonoscopy with biopsy Preoperative diagnosis: GERD/upper abdominal pain Change in bowel habits Anesthesia: MAC Procedure: After informed consent was obtained from the patient was brought into the endoscopy unit and IV sedation was administered by anesthesia under continuous monitoring. Initially upper endoscopy was done. The Olympus GF 160 video endoscope was inserted inserted into the mouth and esophagus intubated without any difficulty and was gradually advanced into the stomach and duodenum and carefully examined. The bulb and second part of the duodenum appeared normal. Biopsies were done from the duodenum rule out celiac disease. The scope was then withdrawn into the stomach adequately insufflated with air and upon careful examination the antrum had linear areas of erythema consistent with gastritis and biopsies were done from this area. Mucosa of the d body, cardia and fundus appeared normal. The scope was then withdrawn into the esophagus. The GE junction was located at 40 cm to the incisors. It appeared regular with no erythema erosions or ulcerations. There was a millimeter island of Lopez's appearing mucosa just proximal to the GE junction which was biopsied. Rest of the esophagus appeared normal. Patient tolerated the procedure well. At this time the patient continued to remain sedation. Initial digital rectal examination was normal. Olympus CF 160 video colonoscope was then inserted into the rectum and gradually advanced to the cecum without any difficulty. Careful examination was performed as the scope was gradually being withdrawn. The prep was excellent. The cecum, ascending colon, transverse colon, descending colon, sigmoid colon and rectum appeared normal. Random biopsies were done from the ascending and descending colon rule out microscopic/collagenous colitis. Retroflexion was performed in the rectum and no lesions were noted. Patient tolerated the procedure well. Impression: 1. Upper endoscopy revealed mild antral gastritis and short segment Lopez's esophagus status post biopsy 2. Colonoscopy was within normal limits with no evidence of colitis or colorectal neoplasia. Recommendations: Findings of this examination were discussed with the patient as well as the family. She was advised to follow with the biopsy results. Follow-up in the office in 2 weeks. If the biopsy reveals Lopez's esophagus, recommend a repeat upper endoscopy in 3 years. Is advised to have a repeat colonoscopy in 10 years.
[2024-08-11 09:12] VITALS: BP 103/69; PULSE 73; RESP 16
== END ==
LOC: ORWHC2ENDO 07:11
PROVIDERS: ATTEND Internal Medicine Gastroenterology
DX: K29.80 Duodenitis without bleeding (principal); K31.9 Disease of stomach and duodenum, unspecified; K29.70 Gastritis, unspecified, without bleeding; K22.70 Barrett's esophagus without dysplasia; R19.4 Change in bowel habit; K21.9 Gastro-esophageal reflux disease without esophagitis; J45.909 Unspecified asthma, uncomplicated; E11.9 Type 2 diabetes mellitus without complications; E66.9 Obesity, unspecified; F12.90 Cannabis use, unspecified, uncomplicated; Z98.890 Other specified postprocedural states; Z79.899 Other long term (current) drug therapy; Z98.51 Tubal ligation status; Z68.41 Body mass index [BMI] 40.0-44.9, adult
CPT/HCPCS: 81025; 88305; 88342; 45380; 43239; J3010; J2704; J2003